=== PATIENT | male | born 1980 | race Caucasian/White ===

== ENCOUNTER 2016-09-19 09:02 | Day surgery (SDC) | payer OTHER ==
[2016-09-14 11:04] VITALS: BMI 31.4
[~2016-09-19 09:02] MED LIST: LACTATED RINGERS 1,000 ML IV SCH
[2016-09-19 09:32] VITALS: RESP 16; TEMP 97.8
[2016-09-19] MEDS ORDERED: LIDOCAINE 1% 20 ML VIAL (10MG/ML) FOR IV START INTRADERMA ONE (09:34)
[2016-09-19] MEDS ORDERED: MIDAZOLAM 2 MG/2 ML VIAL ONE (10:29)
[2016-09-19] MEDS ORDERED: TRIAMCINOLONE ACETONIDE 40 MG/ML 1 ML VIAL ONE (10:29)
[2016-09-19] MEDS ORDERED: fentaNYL (PF) 50 MCG/ML 2 ML AMP ONE (10:29)
--- NOTE | 2016-09-19 10:55 | P.PCN ---
Date of Procedure: 09/19/16 Procedure(s) Performed: PREOPERATIVE DIAGNOSIS: 1- Lumbar herniated Disc Diseases 2-Lumbar Radiculopathy. POSTOPERATIVE DIAGNOSIS: Same as preop diagnosis. PROCEDURE 1. Lumbar epidural steroid injection under fluoroscopic guidance at the L5-S1 level. ANESTHESIA: Local with 1% lidocaine 3 ml and IV sedation with Versed 2 mg , and fentanyle 50 Mcg EBL: Minimal PROCEDURE INDICATION: The patient with low back pain and radiculitis symptoms unresponsive to conservative treatment. Fluoroscopy was used to optimize visualization of the needle placement and to maximize safety. PROCEDURE DESCRIPTION / TECHNIQUE: The patient was seen and identified in the preoperative area. Risks, benefits , complications including but not limited to infections ,bleeding ,allergic reaction to the medications ,nerve damage and not complete pain releife , and alternatives were discussed with the patient. The patient agreed to proceed with the procedure and signed the consent. IV was started, and vital signs were stable. Patient was taken to the OR and time out was completed. The patient was placed in the prone position on procedure table and a pillow was placed under the abdomen to reduce lumbar lordosis. The lumbosacral area was prepped and draped in the usual sterile fashion.ere closely monitored during the procedure. Conscious sedation was used during the procedure to decrease patients anxiety. Vital signs was monitered during the entire procedure. Using anterior-posterior fluoroscopy, the L5-S1 interlaminar space was identified and the skin over this site was marked and then infiltrated with 1% lidocaine subcutaneously. Subsequently, a 20-gauge Tuohy epidural needle was inserted and advanced toward the epidural space using the ``Loss of resistance technique and guided by AP and lateral fluoroscopy. The correct needle position in the epidural space was verified with fluoroscopy, after negative aspiration for blood and CSF and in the absence of paresthesias. Again after negative aspiration, a 6 ml mixture containing 80 mg of Kenalog and 2 ml of preservative free Normal Saline, and 2 ml of preservative free lidocaine 1% solution was injected , Omnipaque was not injected because patient has ALLERGY to IVP dye. Needle was withdrawn intact, skin was cleansed, and bandages were applied. COMPLICATIONS: None DISPOSITION / PLANS: The patient was placed in a supine position and transferred to the recovery area in a stable condition for observation. There was no evidence of lower extremity motor or sensory deficit after the procedure. Patient was discharged from the recovery room after meeting discharge criteria. Home discharge instructions were given to the patient by the staff. The patient was reexamined prior to discharge. The patient will schedule a follow up in the clinic in 2-4 weeks.
[2016-09-19] MEDS ORDERED: IV FLUID CONTINUATION 1,000 ML IV ONE (10:58)
--- NOTE | 2016-09-19 11:05 | FL ---
EXAMINATION TYPE: FL guided pain mgmt statistic DATE OF EXAM: 09/19/2016 10:55 AM HISTORY: Flouroscopy time 5 seconds of fluoroscopy provided. IMPRESSION: 1. Fluoroscopy time.
[2016-09-19 11:23] VITALS: BP 117/60; PULSE 78
== END 2016-09-19 11:32 | disposition home or self-care (01) ==
LOC: ORPAIN 09:02
PROVIDERS: ATTEND Specialist
DX: M51.16 Intervertebral disc disorders with radiculopathy, lumbar region (principal); J45.909 Unspecified asthma, uncomplicated; F41.9 Anxiety disorder, unspecified; Z91.041 Radiographic dye allergy status; Z88.5 Allergy status to narcotic agent
CPT/HCPCS: 62323; J2250; J3301; J3010

== ENCOUNTER 2016-12-22 18:05 | Observation (INO) | payer OTHER ==
[2016-12-22] MEDS ORDERED: SODIUM CHLORIDE 0.9% 1,000 ML IV STA (20:22)
--- NOTE | 2016-12-22 20:36 | ED ---
General Adult HPI <Hugh West - Last Filed: 12/22/16 22:59> <RodrigueOz - Last Filed: 12/22/16 23:49> - General Source: patient, RN notes reviewed Mode of arrival: ambulatory Limitations: no limitations <Jacki Phillips - Last Filed: 12/23/16 03:40> - General Chief complaint: Weakness Stated complaint: weakness,poss diabete Time Seen by Provider: 12/22/16 20:11 - History of Present Illness Initial comments: Patient is a 36-year-old male presents emergency room for evaluation of generalized weakness and chest pain. Patient states symptoms began yesterday. Patient states symptoms are escalating today. Patient states he has Left-sided chest pain that radiates down his left arm that has been going on and off throughout the day today. Patient states the pain will last about 1-2 minutes at a time. Patient states he feels weak all over. Patient denies shortness of breath. Patient states is currently having 4 out of 10 chest pain. Patient denies any cardiac history. Patient states he has family history of MIs. 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 Patient denies ever taking blood thinners. Patient also states she has a history of colitis. Patient states he's been having blood in his stools which is normal for him. Patient denies any increasing abdominal pain. Patient denies history of anemia. Patient denies headache or dizziness. Patient states he feels very rundown. Patient denies fevers or chills. (Jacki Phillips) - Related Data Home Medications Medication Instructions Recorded Confirmed Albuterol Inhaler [Ventolin Hfa 1 puff INHALATION RT-Q4H PRN 12/22/16 12/22/16 Inhaler] Ibuprofen [Motrin] 600 mg PO BID 12/22/16 12/22/16 Icy Hot Rub 1 applic TOPICAL DAILY PRN 12/22/16 12/22/16 Loratadine [Claritin] 10 mg PO DAILY 12/22/16 12/22/16 Allergies Allergy/AdvReac Type Severity Reaction Status Date / Time cashew nut Allergy Swelling Verified 12/22/16 20:18 Iodinated Contrast Media - Allergy Nausea & Verified 12/22/16 20:18 Oral and Vomiting & [Iodinated Contrast Media - Diarrhea IV Dye] Review of Systems ROS Other: All systems not noted in ROS Statement are negative. <BrettHugh - Last Filed: 12/22/16 22:59> ROS Other: All systems not noted in ROS Statement are negative. <Oz Husain - Last Filed: 12/22/16 23:49> ROS Other: All systems not noted in ROS Statement are negative. <Jacki Phillips - Last Filed: 12/23/16 03:40> ROS Statement: Those systems with pertinent positive or pertinent negative responses have been documented in the HPI. Past Medical History Past Medical History: Asthma, CVA/TIA, Diabetes Mellitus, Musculoskeletal Disorder Additional Past Medical History / Comment(s): COLITIS, pain lower back and feet History of Any Multi-Drug Resistant Organisms: None Reported Past Surgical History: Appendectomy Additional Past Surgical History / Comment(s): Cassius ing. hernia repair x2 each side. BACK INJECTIONS. Past Anesthesia/Blood Transfusion Reactions: Previous Problems w/ Anesthesia Additional Past Anesthesia/Blood Transfusion Reaction / Comment(s): slow to wake up Past Psychological History: No Psychological Hx Reported Smoking Status: Never smoker Past Alcohol Use History: None Reported Past Drug Use History: None Reported - Past Family History Father Family Medical History: Diabetes Mellitus, Hypertension Additional Family Medical History / Comment(s): CA Mother Family Medical History: Diabetes Mellitus, Hypertension Additional Family Medical History / Comment(s): CA. <Jacki Phillips - Last Filed: 12/23/16 03:40> General Exam <Hugh West - Last Filed: 12/22/16 22:59> <Oz Husain - Last Filed: 12/22/16 23:49> Limitations: no limitations General appearance: alert, in no apparent distress Head exam: Present: atraumatic, normocephalic, normal inspection Eye exam: Present: normal appearance ENT exam: Present: normal exam Respiratory exam: Present: normal lung sounds bilaterally. Absent: respiratory distress Cardiovascular Exam: Present: regular rate, normal rhythm, normal heart sounds GI/Abdominal exam: Present: soft, normal bowel sounds. Absent: distended, tenderness, guarding, rebound, rigid Extremities exam: Present: normal inspection Back exam: Present: normal inspection Neurological exam: Present: alert, oriented X3, CN II-XII intact, normal gait Psychiatric exam: Present: normal affect, normal mood Skin exam: Present: warm, dry, intact, normal color. Absent: rash <Jacki Phillips - Last Filed: 12/23/16 03:40> - General Exam Comments Initial Comments: Sitting in exam room, no acute distress. (Jacki Phillips) Course <Hugh West - Last Filed: 12/22/16 22:59> <Oz Husain - Last Filed: 12/22/16 23:49> <Jacki Phillips - Last Filed: 12/23/16 03:40> Vital Signs 12/22/16 12/22/16 12/22/16 19:20 20:22 21:25 Temperature 97.7 F 97.3 F L 97.3 F L Pulse Rate 73 80 75 Pulse Rate [ Right] Respiratory 18 16 16 Rate Blood Pressure 139/91 149/98 134/70 Blood Pressure [Right Arm] O2 Sat by Pulse 97 98 96 Oximetry 12/23/16 12/23/16 00:10 01:00 Temperature 97.7 F Pulse Rate 63 Pulse Rate [ 69 Right] Respiratory 18 16 Rate Blood Pressure 131/80 Blood Pressure 154/88 [Right Arm] O2 Sat by Pulse 98 96 Oximetry - Reevaluation(s) Reevaluation #1: 12/22/16 23:49 I was asked to enter a placement order in this patient's chart. (Oz Husain) EKG Findings - EKG Comments: EKG Findings:: EKG was done and reviewed at 1937 showing normal sinus rhythm with sinus arrhythmia right incomplete right bundle branch block. No acute ST elevation, no ischemic changes appreciated. Rate 60 per was 138 QRS 94 QT [address] West <Hugh West - Last Filed: 12/22/16 22:59> Medical Decision Making - Lab Data Result diagrams: 12/22/16 20:49 12/22/16 20:49 <Hugh West - Last Filed: 12/22/16 22:59> - Lab Data Result diagrams: 12/22/16 20:49 12/22/16 20:49 <Oz Husain - Last Filed: 12/22/16 23:49> - Lab Data Result diagrams: 12/22/16 20:49 12/22/16 20:49 <Jacki Phillips - Last Filed: 12/23/16 03:40> - Medical Decision Making Medical decision-making. Recently the patient reports for the past 2 or 3 days been having anginal-type symptoms left side of the chest radiates down the left arm last 2 or 3 minutes. The patient does heavy labor. No sensation of nausea vomiting. Today's EKG done in emergency room showed normal sinus rhythm with sinus arrhythmia and incomplete right bundle branch block. Risk factors include grandfather sudden- heart attack age 40. His father has had multiple strokes and 2 heart attacks. The patient himself is a TIA several years ago. The patient's nonsmoker. I discussed with patient and family at bedside angina-type symptoms possibility of unstable angina. The patient's attending will be notified patient be admitted for further evaluation including cardiology consultation. The patient is pain free at this time. Enzymes all within normal limits. Dr. West (Hugh West) - Lab Data Lab Results 12/22/16 12/22/16 12/22/16 Range/Units 20:49 20:49 20:49 WBC 11.5 H (3.8-10.6) k/uL RBC 5.11 (4.30-5.90) m/uL Hgb 15.8 (13.0-17.5) gm/dL Hct 45.9 (39.0-53.0) % MCV 89.7 (80.0-100.0) fL MCH 30.8 (25.0-35.0) pg MCHC 34.4 (31.0-37.0) g/dL RDW 12.3 (11.5-15.5) % Plt Count 347 (150-450) k/uL Neutrophils % 64 % Lymphocytes % 21 % Monocytes % 6 % Eosinophils % 7 % Basophils % 1 % Neutrophils # 7.3 (1.3-7.7) k/uL Lymphocytes # 2.4 (1.0-4.8) k/uL Monocytes # 0.7 (0-1.0) k/uL Eosinophils # 0.8 H (0-0.7) k/uL Basophils # 0.1 (0-0.2) k/uL PT (9.0-12.0) sec INR (<1.1) APTT (22.0-30.0) sec Sodium 141 (137-145) mmol/L Potassium 4.1 (3.5-5.1) mmol/L Chloride 103 (98-107) mmol/L Carbon Dioxide 27 (22-30) mmol/L Anion Gap 11 mmol/L BUN 15 (9-20) mg/dL Creatinine 0.92 (0.66-1.25) mg/dL Est GFR (MDRD) Af Amer >60 (>60 ml/min/1.73 sqM) Est GFR (MDRD) Non-Af >60 (>60 ml/min/1.73 sqM) Glucose 111 H (74-99) mg/dL POC Glucose (mg/dL) (75-99) mg/dL POC Glu Supervisor [employer] ID Calcium 9.9 (8.4-10.2) mg/dL Magnesium 2.1 (1.6-2.3) mg/dL Total Bilirubin 0.7 (0.2-1.3) mg/dL AST 38 (17-59) U/L ALT 54 (21-72) U/L Alkaline Phosphatase 100 (38-126) U/L Total Creatine Kinase 195 H (55-170) U/L CK-MB (CK-2) 1.0 (0.0-2.4) ng/mL CK-MB (CK-2) Rel Index 0.5 Troponin I <0.012 (0.000-0.034) ng/mL Total Protein 7.8 (6.3-8.2) g/dL Albumin 4.7 (3.5-5.0) g/dL Amylase 76 (30-110) U/L Lipase 253 (23-300) U/L Urine Color Urine Appearance (Clear) Urine pH (5.0-8.0) Ur Specific [place] (1.001-1.035) Urine Protein (Negative) Urine Glucose (UA) (Negative) Urine Ketones (Negative) Urine Blood (Negative) Urine Nitrite (Negative) Urine Bilirubin (Negative) Urine Urobilinogen (<2.0) mg/dL Ur Leukocyte Esterase (Negative) 12/22/16 12/22/16 12/22/16 Range/Units 20:49 20:49 21:02 WBC (3.8-10.6) k/uL RBC (4.30-5.90) m/uL Hgb (13.0-17.5) gm/dL Hct (39.0-53.0) % MCV (80.0-100.0) fL MCH (25.0-35.0) pg MCHC (31.0-37.0) g/dL RDW (11.5-15.5) % Plt Count (150-450) k/uL Neutrophils % % Lymphocytes % % Monocytes % % Eosinophils % % Basophils % % Neutrophils # (1.3-7.7) k/uL Lymphocytes # (1.0-4.8) k/uL Monocytes # (0-1.0) k/uL Eosinophils # (0-0.7) k/uL Basophils # (0-0.2) k/uL PT 9.7 (9.0-12.0) sec INR 0.9 (<1.1) APTT 23.6 (22.0-30.0) sec Sodium (137-145) mmol/L Potassium (3.5-5.1) mmol/L Chloride (98-107) mmol/L Carbon Dioxide (22-30) mmol/L Anion Gap mmol/L BUN (9-20) mg/dL Creatinine (0.66-1.25) mg/dL Est GFR (MDRD) Af Amer (>60 ml/min/1.73 sqM) Est GFR (MDRD) Non-Af (>60 ml/min/1.73 sqM) Glucose (74-99) mg/dL POC Glucose (mg/dL) 112 H (75-99) mg/dL POC Glu Supervisor [employer] ID Anger, [place] Calcium (8.4-10.2) mg/dL Magnesium (1.6-2.3) mg/dL Total Bilirubin (0.2-1.3) mg/dL AST (17-59) U/L ALT (21-72) U/L Alkaline Phosphatase (38-126) U/L Total Creatine Kinase (55-170) U/L CK-MB (CK-2) (0.0-2.4) ng/mL CK-MB (CK-2) Rel Index Troponin I (0.000-0.034) ng/mL Total Protein (6.3-8.2) g/dL Albumin (3.5-5.0) g/dL Amylase (30-110) U/L Lipase (23-300) U/L Urine Color Yellow Urine Appearance Clear (Clear) Urine pH 6.0 (5.0-8.0) Ur Specific [place] 1.012 (1.001-1.035) Urine Protein Negative (Negative) Urine Glucose (UA) Negative (Negative) Urine Ketones Negative (Negative) Urine Blood Negative (Negative) Urine Nitrite Negative (Negative) Urine Bilirubin Negative (Negative) Urine Urobilinogen <2.0 (<2.0) mg/dL Ur Leukocyte Esterase Negative (Negative) Disposition <Hugh West - Last Filed: 12/22/16 22:59> <Oz Husain - Last Filed: 12/22/16 23:49> Decision Date: 12/22/16 <Jacki Phillips - Last Filed: 12/23/16 03:40> Clinical Impression: Unstable angina Disposition: ADMITTED IP TO THIS HOSP Condition: Stable
[2016-12-22 21:01] LABS: Appearance,Urine Clear (Clear); Bilirubin,Urine Negative (Negative); Glucose,Urine (UA) Negative (Negative); Ketones,Urine Negative (Negative); Leukocyte Esterase,Urine Negative (Negative); Nitrite,Urine Negative (Negative); Protein,Urine Negative (Negative); Specific Gravity,Urine 1.012 (1.001-1.035); UA Billing (MACRO vs. MICRO) CHEM; Urobilinogen,Urine <2.0 mg/dL (<2.0)
[2016-12-22 21:03] LABS: Glucose,Whole Blood 112 mg/dL (75-99)
[2016-12-22] MEDS ORDERED: ONDANSETRON 4 MG/2 ML VIAL IVP STA (21:11)
[2016-12-22 21:15] LABS: Basophils # (A) 0.1 k/uL (0-0.2); Basophils % (A) 1 %; CH 31.4; CHCM 35.2; Eosinophils # (A) 0.8 k/uL (0-0.7); Eosinophils % (A) 7 %; HCT 45.9 % (39.0-53.0); HDW 2.58; HGB 15.8 gm/dL (13.0-17.5); Luc # (Auto) 0.23; Luc % (Auto) 2; Lymphocytes # (A) 2.4 k/uL (1.0-4.8); Lymphocytes % (A) 21 %; MCH 30.8 pg (25.0-35.0); MCHC 34.4 g/dL (31.0-37.0); MCV 89.7 fL (80.0-100.0); Mean Platelet Volume 6.3; Monocytes # (A) 0.7 k/uL (0-1.0); Monocytes % (A) 6 %; Neutrophils # (A) 7.3 k/uL (1.3-7.7); Neutrophils % (A) 64 %; RBC 5.11 m/uL (4.30-5.90); RDW 12.3 % (11.5-15.5); WBC 11.5 k/uL (3.8-10.6); WBC (Perox) 11.42
[2016-12-22 21:16] LABS: ALT 54 U/L (21-72); AST 38 U/L (17-59); Alkaline Phosphatase 100 U/L (38-126); Amylase 76 U/L (30-110); Anion Gap 11 mmol/L; Blood Urea Nitrogen 15 mg/dL (9-20); Calcium 9.9 mg/dL (8.4-10.2); Carbon Dioxide 27 mmol/L (22-30); Chloride 103 mmol/L (98-107); Creatine Kinase 195 U/L (55-170); Glucose 111 mg/dL (74-99); Magnesium 2.1 mg/dL (1.6-2.3); Non-African American GFR(MDRD) >60 (>60 ml/min/1.73 sqM); Potassium 4.1 mmol/L (3.5-5.1); Sodium 141 mmol/L (137-145); Total Bilirubin 0.7 mg/dL (0.2-1.3); Total Protein 7.8 g/dL (6.3-8.2)
[2016-12-22 21:20] LABS: INR 0.9 (<1.1); Partial Thromboplastin Time 23.6 sec (22.0-30.0); Prothrombin Time 9.7 sec (9.0-12.0)
[2016-12-22 21:28] LABS: Troponin I <0.012 ng/mL (0.000-0.034)
[2016-12-22] MEDS ORDERED: HEPARIN SODIUM,PORCINE 5,000 UNIT/ML 1 ML VIAL IV ONE (23:01)
[2016-12-22] MEDS ORDERED: NITROGLYCERIN SL TABS 0.4 MG TAB SUBLINGUAL PRN (23:12)
[2016-12-22] MEDS ORDERED: ACETAMINOPHEN TAB 325 MG TAB PO PRN (23:12)
[2016-12-22] MEDS ORDERED: MORPHINE SULFATE 4 MG/ML SYRINGE IV PRN (23:12)
[2016-12-22] MEDS ORDERED: HEPARIN SODIUM,PORCINE/D5W PMX 25,000 UNIT in DEXTROSE/WATER 1 500ML.BAG IV SCH (23:15)
[2016-12-22] MEDS ORDERED: ALBUTEROL NEBULIZED 2.5 MG/3 ML INHALATION PRN (23:21)
--- NOTE | 2016-12-22 23:36 | XR ---
EXAM: XR Abdomen Complete With XR Chest CLINICAL HISTORY: Reason: Pain TECHNIQUE: Frontal view of the chest, frontal view of the abdomen/pelvis and upright view of the abdomen. COMPARISON: No relevant prior studies available. FINDINGS: Lungs: Unremarkable. No consolidation. Pleural space: Unremarkable. No pneumothorax. Heart: Unremarkable. No cardiomegaly. Mediastinum: Unremarkable. Intraperitoneal space: No free air. Gastrointestinal tract: Moderate fecal load. No obstruction. Bones/joints: Unremarkable. IMPRESSION: Moderate fecal load.
[2016-12-23] MEDS ORDERED: ASPIRIN 325 MG TAB PO STA (00:12)
[2016-12-23 02:51] LABS: Creatine Kinase 158 U/L (55-170)
[2016-12-23 03:04] LABS: Creatine Kinase MB 0.8 ng/mL (0.0-2.4); Troponin I <0.012 ng/mL (0.000-0.034)
[2016-12-23 06:57] LABS: Glucose,Whole Blood 104 mg/dL (75-99)
[2016-12-23 07:59] LABS: Cholesterol 137 mg/dL (<200); HDL Cholesterol 31 mg/dL (40-60); Triglycerides 206 mg/dL (<150)
[2016-12-23 08:07] LABS: Creatine Kinase 140 U/L (55-170)
[2016-12-23 08:18] LABS: Creatine Kinase MB 0.8 ng/mL (0.0-2.4); Troponin I <0.012 ng/mL (0.000-0.034)
--- NOTE | 2016-12-23 08:25 | P.HPIM ---
History of Present Illness H&P Date: 12/23/16 Chief Complaint: Chest pain 36-year-old male whose primary care provider is Dr. Wells presented on the day of admission to the emergency room with a chief complaint of developing midsternal chest discomfort radiating down the left upper arm with a sensation of nausea no emesis no diaphoresis. No shortness of breath Patient reports the symptoms have been ongoing throughout the day. Patient stated occurred at work when he was actively lifting he stopped the activity the discomfort went away. Patient states he had not had prior episodes. Patient states is normally a active individual this is not a new job that he's been at this job for 5 years working as a [employer].. Patient stated that he did become concerned and did present to the emergency room for the above-mentioned symptoms. Patient states he does have a family history of coronary artery disease His great-grandfather at the age of 40 from a heart attack his father reportedly has had several TIAs with prior strokes. Patient states there's been no significant change in past medical history. He is a nonsmoker no alcohol. Patient does state he has a history of colitis has chronic right red bloody stools. States his last colonoscopy was [address] López is on no medication for colitis. Currently resting in bed states at rest there is no chest pain troponin 2 negative. 12-lead EKG sinus rhythm no acute ST elevation incomplete right bundle branch block Review of Systems Essentially unremarkable except as mentioned in the present illness Past Medical History Past Medical History: Asthma, CVA/TIA, Diabetes Mellitus, Musculoskeletal Disorder Additional Past Medical History / Comment(s): COLITIS, pain lower back and feet History of Any Multi-Drug Resistant Organisms: None Reported Past Surgical History: Appendectomy Additional Past Surgical History / Comment(s): Cassius ing. hernia repair x2 each side. BACK INJECTIONS. Past Anesthesia/Blood Transfusion Reactions: Previous Problems w/ Anesthesia Additional Past Anesthesia/Blood Transfusion Reaction / Comment(s): slow to wake up Past Psychological History: No Psychological Hx Reported Smoking Status: Never smoker Past Alcohol Use History: None Reported Past Drug Use History: None Reported - Past Family History Father Family Medical History: Diabetes Mellitus, Hypertension Additional Family Medical History / Comment(s): CA Mother Family Medical History: Diabetes Mellitus, Hypertension Additional Family Medical History / Comment(s): CA. Medications and Allergies Home Medications Medication Instructions Recorded Confirmed Type Albuterol Inhaler [Ventolin Hfa 1 puff INHALATION RT-Q4H PRN 12/22/16 12/22/16 History Inhaler] Ibuprofen [Motrin] 600 mg PO BID 12/22/16 12/22/16 History Icy Hot Rub 1 applic TOPICAL DAILY PRN 12/22/16 12/22/16 History Loratadine [Claritin] 10 mg PO DAILY 12/22/16 12/22/16 History Allergies Allergy/AdvReac Type Severity Reaction Status Date / Time cashew nut Allergy Swelling Verified 12/22/16 20:18 Iodinated Contrast Media - Allergy Nausea & Verified 12/22/16 20:18 Oral and Vomiting & [Iodinated Contrast Media - Diarrhea IV Dye] Physical Exam Vitals: Vital Signs Temp Pulse Pulse Resp BP BP Pulse Ox 12/23/16 07:53 98.6 F 70 16 132/72 96 12/23/16 04:00 98.2 F 74 16 116/71 12/23/16 03:35 65 16 12/23/16 01:00 97.7 F 69 16 154/88 96 12/23/16 00:10 63 18 131/80 98 12/22/16 21:25 97.3 F L 75 16 134/70 96 12/22/16 20:22 97.3 F L 80 16 149/98 98 12/22/16 19:20 97.7 F 73 18 139/91 97 Intake and Output 12/22/16 12/23/16 12/23/16 22:59 06:59 14:59 Other: Voiding Method Toilet # Voids 3 Weight 86.183 kg GENERAL APPEARANCE: 36-year-old male patient is alert, oriented, in no acute distress. Currently states at rest no chest discomfort VITAL SIGNS: Reviewed HEENT: Head is normocephalic and atraumatic. Pupils are equal and reactive. The nares are patent. Oropharynx is clear without lesions. NECK: Supple without lymphadenopathy. Traches midline. HEART: S1, S2. Regular rate and rhythm. Sinus rhythm on the monitor no murmur noted LUNGS: No crackles or wheezes are heard. Adequate air movement bilaterally on room air ABDOMEN: Soft, nontender, nondistended with good bowel sounds. No peritoneal signs. No palpable organomegaly or masses. EXTREMITIES: Normal skin color and turgor. No cyanosis, rash, ulceration, clubbing or edema. Radial pedal pulses are 2/4 bilaterally. NEUROLOGICAL: No focal deficits. Strength and sensation are grossly intact. Results CBC & Chem 7: 12/22/16 20:49 12/22/16 20:49 Labs: Abnormal Lab Results - Last 24 Hours (Table) 12/22/16 12/22/16 12/22/16 Range/Units 20:49 20:49 20:49 WBC 11.5 H (3.8-10.6) k/uL Eosinophils # 0.8 H (0-0.7) k/uL APTT (22.0-30.0) sec Glucose 111 H (74-99) mg/dL POC Glucose (mg/dL) (75-99) mg/dL Total Creatine Kinase 195 H (55-170) U/L Triglycerides (<150) mg/dL HDL Cholesterol (40-60) mg/dL 12/22/16 12/23/16 12/23/16 Range/Units 21:02 06:55 07:23 WBC (3.8-10.6) k/uL Eosinophils # (0-0.7) k/uL APTT (22.0-30.0) sec Glucose (74-99) mg/dL POC Glucose (mg/dL) 112 H 104 H (75-99) mg/dL Total Creatine Kinase (55-170) U/L Triglycerides 206 H (<150) mg/dL HDL Cholesterol 31 L (40-60) mg/dL 12/23/16 Range/Units 07:23 WBC (3.8-10.6) k/uL Eosinophils # (0-0.7) k/uL APTT 30.9 H (22.0-30.0) sec Glucose (74-99) mg/dL POC Glucose (mg/dL) (75-99) mg/dL Total Creatine Kinase (55-170) U/L Triglycerides (<150) mg/dL HDL Cholesterol (40-60) mg/dL Thrombosis Risk Factor Assmnt - Choose All That Apply Each Factor Represents 1 point: Obesity (BMI >25) Thrombosis Risk Factor Assessment Total Risk Factor Score: 1 Thrombosis Risk Factor Assessment Level: Low Risk Assessment and Plan Plan: Impression Present on admission chest pain radiating down left arm unclear etiology History of colitis hemoglobin stable 15.8 Obesity BMI 31 Present on admission mild leukocytosis suspect reactive History of seasonal ALLERGIES A report of a family history of heart disease grandfather age 40 Dyslipidemia Plan Await cardiology input pending IV heparin as ordered Keep nothing by mouth total cardiology eval DVT and GI prophylaxis Further recommendations pending The above dictated assessment and findings were discussed with dr wells . Impression and the plan of care have been dictated as directed. Dilia Morgan nurse practitioner acting as a scribe for dr wells
[2016-12-23] MEDS: LORATADINE 10 MG TAB PO SCH (09:08)
[2016-12-23] MEDS: IBUPROFEN 600 MG TAB PO SCH ×2 (09:12→20:58)
--- NOTE | 2016-12-23 10:56 | P.PN ---
Progress Note - Text 36-year-old male patient with a strong family history of premature coronary artery disease and diabetes who presented with chest discomfort and numbness in his arm, normal cardiac enzymes are normal ECGs Plan Aspirin, atorvastatin and exercise stress echo with Definity contrast on Sunday
--- NOTE | 2016-12-23 11:11 | P.CRDCN ---
History of Present Illness Consult date: 12/23/16 Reason for Consult (text): unstable angina Chief complaint: chest pain, left arm heaviness, hand tingling History of present illness: This is a pleasant 36 year old gentleman with a known history of colitis for which she does have bloody stools, borderline diabetes which she was prescribed Glucophage but has been afraid to take this, previous TIA in 2011 and strong family history for coronary artery disease with a grandfather in his early 40s and his father has multiple stents starting in his early 40s and an uncle who had MIs and has since passed in his 40s. He is a nonsmoker, denies hypertension and hyperlipidemia and is a nondrinker. Is admitted to the emergency department after developing complaints of chest discomfort as well as left arm heaviness left hand tingling dizziness and nausea at work. His job is quite physical. After resting it went away however symptoms returned later in the evening. ECG on admission shows sinus rhythm without acute ST-T wave changes. Cardiac enzymes have been negative 3. Patient denies further complaints of chest discomfort, left arm heaviness, dizziness or nausea continues to complain of left hand tingling. Past Medical History Past Medical History: Asthma, CVA/TIA, Diabetes Mellitus, Musculoskeletal Disorder Additional Past Medical History / Comment(s): COLITIS, pain lower back and feet History of Any Multi-Drug Resistant Organisms: None Reported Past Surgical History: Appendectomy Additional Past Surgical History / Comment(s): Cassius ing. hernia repair x2 each side. BACK INJECTIONS. Past Anesthesia/Blood Transfusion Reactions: Previous Problems w/ Anesthesia Additional Past Anesthesia/Blood Transfusion Reaction / Comment(s): slow to wake up Past Psychological History: No Psychological Hx Reported Smoking Status: Never smoker Past Alcohol Use History: None Reported Past Drug Use History: None Reported - Past Family History Father Family Medical History: Diabetes Mellitus, Hypertension Additional Family Medical History / Comment(s): CA Mother Family Medical History: Diabetes Mellitus, Hypertension Additional Family Medical History / Comment(s): CA. Medications and Allergies Home Medications Medication Instructions Recorded Confirmed Type Albuterol Inhaler [Ventolin Hfa 1 puff INHALATION RT-Q4H PRN 12/22/16 12/22/16 History Inhaler] Ibuprofen [Motrin] 600 mg PO BID 12/22/16 12/22/16 History Icy Hot Rub 1 applic TOPICAL DAILY PRN 12/22/16 12/22/16 History Loratadine [Claritin] 10 mg PO DAILY 12/22/16 12/22/16 History Allergies Allergy/AdvReac Type Severity Reaction Status Date / Time cashew nut Allergy Swelling Verified 12/22/16 20:18 Iodinated Contrast Media - Allergy Nausea & Verified 12/22/16 20:18 Oral and Vomiting & [Iodinated Contrast Media - Diarrhea IV Dye] Physical Exam Vitals: Vital Signs Temp Pulse Pulse Resp BP BP Pulse Ox 12/23/16 07:53 98.6 F 70 16 132/72 96 12/23/16 04:00 98.2 F 74 16 116/71 12/23/16 03:35 65 16 12/23/16 01:00 97.7 F 69 16 154/88 96 12/23/16 00:10 63 18 131/80 98 12/22/16 21:25 97.3 F L 75 16 134/70 96 12/22/16 20:22 97.3 F L 80 16 149/98 98 12/22/16 19:20 97.7 F 73 18 139/91 97 Intake and Output 12/22/16 12/23/16 12/23/16 22:59 06:59 14:59 Other: Voiding Method Toilet Toilet # Voids 3 Weight 86.183 kg PHYSICAL EXAMINATION: HEENT: Head is atraumatic, normocephalic. Pupils equal, round. Neck is supple. There is no elevated jugular venous pressure. Poor dentition. HEART EXAMINATION: Heart sounds regular, S1 and S2 normal. No murmur or gallop heard. CHEST EXAMINATION: Lungs are clear to auscultation and precussion. No chest wall tenderness is noted on palpation or with deep breathing. ABDOMEN: Soft, nontender. Bowel sounds are heard. No organomegaly noted. EXTREMITIES: 2+ peripheral pulses with no evidence of peripheral edema and no calf tenderness noted. NEUROLOGIC patient is awake, alert and oriented x3. . Results 12/22/16 20:49 12/22/16 20:49 Cardiac Enzymes 12/22/16 12/22/16 12/23/16 Range/Units 20:49 20:49 02:12 AST 38 (17-59) U/L CK-MB (CK-2) 1.0 0.8 (0.0-2.4) ng/mL Troponin I <0.012 <0.012 (0.000-0.034) ng/mL 12/23/16 Range/Units 07:23 AST (17-59) U/L CK-MB (CK-2) 0.8 (0.0-2.4) ng/mL Troponin I <0.012 (0.000-0.034) ng/mL Coagulation 12/22/16 12/23/16 Range/Units 20:49 07:23 PT 9.7 (9.0-12.0) sec APTT 23.6 30.9 H (22.0-30.0) sec Lipids 12/23/16 Range/Units 07:23 Triglycerides 206 H (<150) mg/dL Cholesterol 137 (<200) mg/dL HDL Cholesterol 31 L (40-60) mg/dL CBC 12/22/16 Range/Units 20:49 WBC 11.5 H (3.8-10.6) k/uL RBC 5.11 (4.30-5.90) m/uL Hgb 15.8 (13.0-17.5) gm/dL Hct 45.9 (39.0-53.0) % Plt Count 347 (150-450) k/uL Comprehensive Metabolic Panel 12/22/16 Range/Units 20:49 Sodium 141 (137-145) mmol/L Potassium 4.1 (3.5-5.1) mmol/L Chloride 103 (98-107) mmol/L Carbon Dioxide 27 (22-30) mmol/L BUN 15 (9-20) mg/dL Creatinine 0.92 (0.66-1.25) mg/dL Glucose 111 H (74-99) mg/dL Calcium 9.9 (8.4-10.2) mg/dL AST 38 (17-59) U/L ALT 54 (21-72) U/L Alkaline Phosphatase 100 (38-126) U/L Total Protein 7.8 (6.3-8.2) g/dL Albumin 4.7 (3.5-5.0) g/dL Current Medications Generic Name Dose Route Start Last Admin Trade Name Freq PRN Reason Stop Dose Admin Acetaminophen 650 mg 12/22/16 23:12 Tylenol Tab PO Q4HR PRN Pain Albuterol Sulfate 2.5 mg 12/22/16 23:21 Ventolin Nebulized INHALATION RT-Q4H PRN Shortness Of Breath Aspirin 325 mg 12/24/16 09:00 Aspirin PO DAILY [facility] Atorvastatin Calcium 20 mg 12/23/16 10:30 Lipitor PO DAILY [facility] Ibuprofen 600 mg 12/23/16 09:00 12/23/16 09:12 Motrin PO Not Given BID [facility] Loratadine 10 mg 12/23/16 09:00 12/23/16 09:08 Claritin PO 10 mg DAILY [facility] Administration Morphine Sulfate 4 mg 12/22/16 23:12 Morphine Sulfate (Inj) IV Q5M PRN Chest Pain Nitroglycerin 0.4 mg 12/22/16 23:12 Nitrostat SUBLINGUAL Q5M PRN Chest Pain Intake and Output 12/22/16 12/23/16 12/23/16 22:59 06:59 14:59 Other: Voiding Method Toilet Toilet # Voids 3 Weight 86.183 kg 12/22/16 20:49 12/22/16 20:49 Assessment and Plan Plan: Assessment and plan #1 chest discomfort with left arm heaviness and tingling accompanied by dizziness and nausea #2 colitis with bloody stools, hemoglobin is stable #3 diabetes mellitus type 2, noncompliant with medical therapy #4 family history of premature CAD Discontinue IV heparin. Add baby aspirin and atorvastatin. 2-D echo with Doppler. Exercise stress echo with definity on Sunday. PILLOWCASE TURNER note has been reviewed, I agree with a documented findings and plan of care. Patient was seen and examined.
[2016-12-23 12:05] LABS: Glucose,Whole Blood 98 mg/dL (75-99)
[2016-12-23] MEDS: ATORVASTATIN 20 MG TAB PO SCH (12:22)
[2016-12-23 17:29] LABS: Glucose,Whole Blood 106 mg/dL (75-99)
--- NOTE | 2016-12-23 18:30 | ECHOF ---
Referral Reason:cp MEASUREMENTS -------- HEIGHT: 165.1 cm WEIGHT: 86.2 kg BP: IVSd: 1.1 cm (0.6 - 1.1) LVIDd: 4.1 cm (3.9 - 5.3) LVPWd: 1.3 cm (0.6 - 1.1) IVSs: 1.5 cm LVIDs: 2.9 cm LVPWs: 1.8 cm Ao Diam: 3.5 cm (2.0 - 3.7) AV Cusp: 2.4 cm (1.5 - 2.6) LA Diam: 3.5 cm (2.7 - 3.8) MV EXCURSION: 10.412 mm (> 18.000) MV EF SLOPE: 90 mm/s (70 - 150) EPSS: 1.3 cm MV E Samuel: 0.96 m/s MV DecT: 211 ms MV A Samuel: 0.72 m/s MV E/A Ratio: 1.34 RAP: 5.00 mmHg RVSP: 11.86 mmHg FINDINGS -------- Sinus rhythm. This was a technically good study. There is borderline concentric left ventricular hypertrophy. Overall left ventricular systolic function is normal with, an EF between 55 - 60 %. The right ventricle is normal in size and function. The left atrium is normal in size. The right atrium is normal in size. The aortic valve is trileaflet, and appears structurally normal. No aortic stenosis or regurgitation. The mitral valve leaflets are mildly thickened. There is trace mitral regurgitation. Trace tricuspid regurgitation present. The right ventricular systolic pressure, as measured by Doppler, is 11.86mmHg. Pulmonic valve appears structurally normal. The aortic root size is normal. The pericardium is normal. CONCLUSIONS -------- 1. Sinus rhythm. 2. There is trace mitral regurgitation. 3. Trace tricuspid regurgitation present. 4. The right ventricular systolic pressure, as measured by Doppler, is 11.86mmHg. 5. Pulmonic valve appears structurally normal. 6. The aortic root size is normal. 7. The pericardium is normal. 8. This was a technically good study. 9. There is borderline concentric left ventricular hypertrophy. 10. Overall left ventricular systolic function is normal with, an EF between 55 - 60 %. 11. The right ventricle is normal in size and function. 12. The left atrium is normal in size. 13. The right atrium is normal in size. 14. The aortic valve is trileaflet, and appears structurally normal. No aortic stenosis or regurgitation. 15. The mitral valve leaflets are mildly thickened. MEDICAL ANTHROPOLOGY DIRECTOR: Krista Dempsey RDCS
[2016-12-24 08:10] VITALS: RESP 16
--- NOTE | 2016-12-24 08:15 | P.PN ---
Subjective Principal diagnosis: 36 year old male being seen on rounds this morning. Sitting up in bed. Patient has been seen by cardiology service. Patient is being scheduled tomorrow for a stress exercise echo with Definity contrast on the as part of a workup for chest pain. Patient's initial presentation was to the emergency room with chest pain radiating down the left arm. Patient does have a family history of premature coronary artery disease and diabetes. Brigantine enzymes have been negative. Patient currently is stating he has not had any chest pain at rest or with activity this morning Objective - Vital Signs Vital signs: Vital Signs Temp 97.8 F 12/24/16 08:00 Pulse 71 12/24/16 08:00 Resp 16 12/24/16 08:00 BP 115/87 12/24/16 08:00 Pulse Ox 93 L 12/24/16 08:00 Intake & Output 12/23/16 12/24/16 12/24/16 18:59 06:59 18:59 Weight 86.183 kg Other: Voiding Method Toilet Toilet # Voids 1 2 - Exam Physical exam 36-year-old male sitting up in bed pleasant cooperative oriented 3 Lungs essentially clear adequate air movement on room air sats currently 94% no cough noted Heart S1-S2 audible and regular monitor sinus Abdomen soft nontender reports no nausea vomiting Extremities no edema noted - Labs CBC & Chem 7: 12/22/16 20:49 12/22/16 20:49 Labs: Abnormal Lab Results - Last 24 Hours (Table) 12/23/16 12/23/16 Range/Units 07:23 17:22 POC Glucose (mg/dL) 106 H (75-99) mg/dL Triglycerides 206 H (<150) mg/dL HDL Cholesterol 31 L (40-60) mg/dL Assessment and Plan Plan: Impression Present on admission chest pain radiating down left arm unclear etiology History of colitis hemoglobin stable 15.8 Obesity BMI 31 Present on admission mild leukocytosis suspect reactive History of seasonal ALLERGIES A report of a family history of heart disease grandfather age 40 from heart attack Dyslipidemia Strong family history of premature coronary artery disease Plan Scheduled on the stress exercise echo with Definity contrast await results Continue aspirin and Lipitor as ordered DVT and GI prophylaxis Further recommendations pending The above dictated assessment and findings were discussed with dr fried . Impression and the plan of care have been dictated as directed. Dilia Morgan nurse practitioner acting as a scribe for dr fried
[2016-12-24] MEDS: LORATADINE 10 MG TAB PO SCH (08:33)
[2016-12-24] MEDS: ATORVASTATIN 20 MG TAB PO SCH (08:33)
[2016-12-24] MEDS: ASPIRIN 325 MG TAB PO SCH (08:33)
[2016-12-24] MEDS: IBUPROFEN 600 MG TAB PO SCH ×2 (08:33→21:00)
--- NOTE | 2016-12-24 09:03 | PN ---
The patient is doing well. He has not had any further chest pain. His blood pressure 115/87 mmHg, afebrile 97.8 degrees Fahrenheit, pulse rate is in the 70s. Head and neck examination is normal. Heart sounds are normal. Lungs are clear to auscultation. Extremities are warm. No edema. IMPRESSIONS: 1. Patient admitted with atypical chest discomfort with normal cardiac enzymes. 2. Strong family history of coronary artery disease. SUGGEST: Proceed with the stress test tomorrow. If this is normal, he may go home and then follow up as an outpatient.
[2016-12-25] MEDS: ASPIRIN 325 MG TAB PO SCH (10:08)
[2016-12-25] MEDS: LORATADINE 10 MG TAB PO SCH (10:08)
[2016-12-25] MEDS: ATORVASTATIN 20 MG TAB PO SCH (10:08)
[2016-12-25] MEDS: IBUPROFEN 600 MG TAB PO SCH (10:10)
--- NOTE | 2016-12-25 11:07 | ECHOS ---
DATE OF SERVICE: 12/25/2016 AGE: 36Y SEX: M HT: 65" WT: 190 lbs. Protocol Bethel: X Others: Stress Echo Stage: 5 Dur. of Exercise: 12:30 *Heart Rate Blood Pressure *Rest: 72 Rest: 98/57 * *Max. Achieved: 157 Maximum BP: 187/98 85% PMHR: 156 100% PMHR: 184 *METS: 12.7 INDICATIONS: Chest pain. MEDICATIONS: Claritin, Motrin. Baseline rhythm is sinus mechanism, rate of 72, normal axis and intervals. Normal electrocardiogram. Baseline blood pressure 98/57 mmHg. Patient exercised Bethel protocol for 12 minutes 30 seconds reaching peak rate of 157 beats per minute, which is equal to 85% maximum predicted heart rate; peak blood pressure 187/98 mmHg. Test was terminated due to fatigue. There was no chest pain. Electrocardiograph monitoring revealed rare PVCs. There is no evidence of diagnostic ischemic ST deviation. FINDINGS: Baseline echocardiogram revealed normal wall motion. At peak exercise there was normal wall motion augmentation with no hypokinesis or dyskinesis. CONCLUSION: 1. Good exercise tolerance with normal electrocardiograph response to exercise and rare premature ventricular contractions. 2. Normal stress echocardiogram with no evidence of stress-induced ischemia.
[2016-12-25 11:46] VITALS: BP 125/84; PULSE 80; TEMP 98.1
--- NOTE | 2016-12-25 13:13 | P.DS ---
Providers Date of admission: 12/22/16 23:49 Attending physician: Bonnie Wells Consults: 12/22/16 23:12 Consult Physician Urgent Consulting Provider: [facility] Consult Reason/Comments: unstable angina Do you want consulting provider notified?: Yes Primary care physician: Bonnie Wells Hospital Course: 1. Chest pain: AR ruled out. Stress test negative. Troponin negative 3 sets 2. History of colitis hemoglobin stable at 15.8 3. Leukocytosis likely reactive Hospital course This is a 36-year-old male who presented with chest pain radiating down left arm. Symptoms have now resolved. He was evaluated by cardiology. Troponins negative 3 sets EKG showed no significant abnormality. Chest x-ray negative. Patient underwent stress echo today which was negative. His been cleared by cardiology for discharge. His chest pain-free. He will follow-up with Dr. Dr. Wells in 1 week. Patient does have a history of colitis he has been having some rectal bleeding. Hemoglobin has remained stable. He'll follow-up with Dr. Dr. Wells in 1 week. At this time we'll discontinue his Motrin due to his bleeding. Patient Condition at Discharge: Stable Plan - Discharge Summary Discharge Medication List Albuterol Inhaler [Ventolin Hfa Inhaler] 1 puff INHALATION RT-Q4H PRN 12/22/16 [ History] Icy Hot Rub 1 applic TOPICAL DAILY PRN 12/22/16 [History] Loratadine [Claritin] 10 mg PO DAILY 12/22/16 [History] Follow up Appointment(s)/Referral(s): Evans Ortega MD [STAFF PHYSICIAN] - As Needed (Left patient's information and office will call patient for follow-up and appointment) Bonnie Wells MD [Primary Care Provider] - 1 Week Patient Instructions/Handouts: Chest Pain (GEN) Activity/Diet/Wound Care/Special Instructions: Diet: low cholesterol Activity: as tolerated Discharge Disposition: HOME SELF-CARE
== END 2016-12-25 13:35 | disposition home or self-care (01) ==
LOC: EC 18:05 → 3SUR 23:49 → 3OBS 12-23 17:43
PROVIDERS: ADMIT Internal Medicine; ATTEND Internal Medicine
DX: I20.0 Unstable angina (principal); K52.9 Noninfective gastroenteritis and colitis, unspecified; E11.9 Type 2 diabetes mellitus without complications; E66.9 Obesity, unspecified; J45.909 Unspecified asthma, uncomplicated; E78.5 Hyperlipidemia, unspecified; Z82.49 Family history of ischemic heart disease and other diseases of the circulatory system; Z86.73 Personal history of transient ischemic attack (TIA), and cerebral infarction without residual deficits; Z79.899 Other long term (current) drug therapy; Z79.1 Long term (current) use of non-steroidal anti-inflammatories (NSAID); Z91.041 Radiographic dye allergy status; Z91.018 Allergy to other foods; Z87.19 Personal history of other diseases of the digestive system; Z83.3 Family history of diabetes mellitus; Z68.31 Body mass index [BMI] 31.0-31.9, adult; Z91.19 Patient's noncompliance with other medical treatment and regimen
CPT/HCPCS: 96376 ×2; 96361 ×2; 96375 ×2; 99285 ×2; 96365; 96366; 36415; 93005 ×2; 93017; 93306; 93350; 80061; 80053; 82150; 82550 ×2; 82553 ×2; 83690; 83735; 84484 ×2; 85025; 85610; 85730 ×2; 81003; 74022; G0378 ×4; J1644 ×2; J2405

== ENCOUNTER 2017-01-15 14:11 | Observation (INO) | payer OTHER ==
[2017-01-15] MEDS ORDERED: ASPIRIN 81 MG CHEW PO STA (14:25)
--- NOTE | 2017-01-15 14:39 | ED ---
General Adult HPI - General Chief complaint: Chest Pain Stated complaint: Chest Pain Time Seen by Provider: 01/15/17 14:13 Source: patient, RN notes reviewed Mode of arrival: EMS Limitations: no limitations - History of Present Illness Initial comments: Patient is a 36-year-old male who presents emergency room today with chief complaint of chest pain. He does admit that he was at work earlier today began feeling a pressure and heaviness over the anterior chest wall. He does admit that did not seem to be letting up and is different than pain that he had previously just a few weeks ago he was seen here in the emergency room and admitted to the hospital. Patient does admit that EMS was called. He did receive aspirin and nitro sublingually which did relieve his symptoms. He states that this time he is currently pain-free. States he was feeling nauseated at time with these other symptoms but no longer has any symptoms currently. He denies any other complaints or symptoms at this time. Patient denies any recent fever, chills, back pain, abdominal pain, vomiting, numbness or tingling, dysuria or hematuria, constipation or diarrhea, headaches or visual changes, or any other complaints. - Related Data Home Medications Medication Instructions Recorded Confirmed Albuterol Inhaler [Ventolin Hfa 1 puff INHALATION RT-Q4H PRN 12/22/16 01/15/17 Inhaler] Loratadine [Claritin] 10 mg PO DAILY 12/22/16 01/15/17 Aspirin 81 mg PO DAILY 01/15/17 01/15/17 Atorvastatin [Lipitor] 20 mg PO DAILY 01/15/17 01/15/17 Allergies Allergy/AdvReac Type Severity Reaction Status Date / Time cashew nut Allergy Swelling Verified 01/15/17 14:29 Iodinated Contrast Media - Allergy Nausea & Verified 01/15/17 14:29 Oral and Vomiting & [Iodinated Contrast Media - Diarrhea IV Dye] Review of Systems ROS Statement: Those systems with pertinent positive or pertinent negative responses have been documented in the HPI. ROS Other: All systems not noted in ROS Statement are negative. Past Medical History Past Medical History: Asthma, CVA/TIA, Diabetes Mellitus, Musculoskeletal Disorder Additional Past Medical History / Comment(s): COLITIS, pain lower back and feet History of Any Multi-Drug Resistant Organisms: None Reported Past Surgical History: Appendectomy Additional Past Surgical History / Comment(s): Cassius ing. hernia repair x2 each side. BACK INJECTIONS. Past Anesthesia/Blood Transfusion Reactions: Previous Problems w/ Anesthesia Additional Past Anesthesia/Blood Transfusion Reaction / Comment(s): slow to wake up Past Psychological History: No Psychological Hx Reported Smoking Status: Never smoker Past Alcohol Use History: None Reported Past Drug Use History: None Reported - Past Family History Father Family Medical History: Diabetes Mellitus, Hypertension Additional Family Medical History / Comment(s): CA Mother Family Medical History: Diabetes Mellitus, Hypertension Additional Family Medical History / Comment(s): CA. General Exam - General Exam Comments Initial Comments: General: The patient is awake and alert, in no distress, and does not appear acutely ill. Eye: Pupils are equal, round and reactive to light, extra-ocular movements are intact. No nystagmus. There is normal conjunctiva bilaterally. No signs of icterus. Ears, nose, mouth and throat: There are moist mucous membranes and no oral lesions. Neck: The neck is supple, there is no tenderness or JVD. Cardiovascular: There is a regular rate and rhythm. No murmur, rub or gallop is appreciated. Respiratory: Lungs are clear to auscultation, respirations are non-labored, breath sounds are equal. No wheezes, stridor, rales, or rhonchi. Gastrointestinal: Soft, non-distended, non-tender abdomen without masses or organomegaly noted. There is no rebound or guarding present. No CVA tenderness. Bowel sounds are unremarkable. Musculoskeletal: Normal ROM, no tenderness. Strength 5/5. Sensation intact. Pulses equal bilaterally 2+. Neurological: A&O x 3. CN II-XII intact, There are no obvious motor or sensory deficits. Coordination appears grossly intact. Speech is normal. Skin: Skin is warm and dry and no rashes or lesions are noted. Psychiatric: Cooperative, appropriate mood & affect, normal judgment. Limitations: no limitations Course Vital Signs 01/15/17 01/15/17 14:26 14:29 Temperature 98.5 F Pulse Rate 95 Pulse Rate [ 95 Rubber Press Tender ] Respiratory 20 Rate Blood Pressure 142/85 O2 Sat by Pulse 95 Oximetry EKG Findings - EKG Comments: EKG Findings:: KG performed at 1417: Shows normal sinus rhythm at 95 bpm. [place] interval 134. QRS 92. QT/QTc 348/437 . right bundle branch block. Previous EKG on 12/22/2016 shows no acute change. Medical Decision Making - Medical Decision Making Patient reexamined at this time shows no signs of distress. Patient's labs been reviewed are unremarkable. Negative cardiac enzymes of the initial set. EKG shows no change from previous. Patient currently pain-free at this time after one sublingual nitroglycerin given by EMS. Patient will be admitted to hospital for serial enzymes and cardiology consult. Was discussed with admitting physician Dr. Delatorre who will admit the patient. Patient family are aware the plan states understanding. - Lab Data Result diagrams: 01/15/17 14:25 01/15/17 14:25 Lab Results 01/15/17 01/15/17 01/15/17 Range/Units 14:25 14:25 14:25 WBC 11.1 H (3.8-10.6) k/uL RBC 4.74 (4.30-5.90) m/uL Hgb 14.5 (13.0-17.5) gm/dL Hct 42.3 (39.0-53.0) % MCV 89.2 (80.0-100.0) fL MCH 30.6 (25.0-35.0) pg MCHC 34.3 (31.0-37.0) g/dL RDW 12.4 (11.5-15.5) % Plt Count 315 (150-450) k/uL Neutrophils % 71 % Lymphocytes % 15 % Monocytes % 6 % Eosinophils % 6 % Basophils % 1 % Neutrophils # 7.9 H (1.3-7.7) k/uL Lymphocytes # 1.7 (1.0-4.8) k/uL Monocytes # 0.6 (0-1.0) k/uL Eosinophils # 0.7 (0-0.7) k/uL Basophils # 0.1 (0-0.2) k/uL PT (9.0-12.0) sec INR (<1.1) APTT (22.0-30.0) sec Sodium 142 (137-145) mmol/L Potassium 3.7 (3.5-5.1) mmol/L Chloride 108 H (98-107) mmol/L Carbon Dioxide 22 (22-30) mmol/L Anion Gap 12 mmol/L BUN 16 (9-20) mg/dL Creatinine 0.92 (0.66-1.25) mg/dL Est GFR (MDRD) Af Amer >60 (>60 ml/min/1.73 sqM) Est GFR (MDRD) Non-Af >60 (>60 ml/min/1.73 sqM) Glucose 155 H (74-99) mg/dL Calcium 9.7 (8.4-10.2) mg/dL Magnesium 1.7 (1.6-2.3) mg/dL Total Bilirubin 0.6 (0.2-1.3) mg/dL AST 35 (17-59) U/L ALT 61 (21-72) U/L Alkaline Phosphatase 99 (38-126) U/L Total Creatine Kinase 149 (55-170) U/L CK-MB (CK-2) 0.8 (0.0-2.4) ng/mL CK-MB (CK-2) Rel Index 0.5 Troponin I <0.012 (0.000-0.034) ng/mL Total Protein 6.7 (6.3-8.2) g/dL Albumin 4.2 (3.5-5.0) g/dL 01/15/17 Range/Units 14:25 WBC (3.8-10.6) k/uL RBC (4.30-5.90) m/uL Hgb (13.0-17.5) gm/dL Hct (39.0-53.0) % MCV (80.0-100.0) fL MCH (25.0-35.0) pg MCHC (31.0-37.0) g/dL RDW (11.5-15.5) % Plt Count (150-450) k/uL Neutrophils % % Lymphocytes % % Monocytes % % Eosinophils % % Basophils % % Neutrophils # (1.3-7.7) k/uL Lymphocytes # (1.0-4.8) k/uL Monocytes # (0-1.0) k/uL Eosinophils # (0-0.7) k/uL Basophils # (0-0.2) k/uL PT 10.5 (9.0-12.0) sec INR 1.0 (<1.1) APTT 23.5 (22.0-30.0) sec Sodium (137-145) mmol/L Potassium (3.5-5.1) mmol/L Chloride (98-107) mmol/L Carbon Dioxide (22-30) mmol/L Anion Gap mmol/L BUN (9-20) mg/dL Creatinine (0.66-1.25) mg/dL Est GFR (MDRD) Af Amer (>60 ml/min/1.73 sqM) Est GFR (MDRD) Non-Af (>60 ml/min/1.73 sqM) Glucose (74-99) mg/dL Calcium (8.4-10.2) mg/dL Magnesium (1.6-2.3) mg/dL Total Bilirubin (0.2-1.3) mg/dL AST (17-59) U/L ALT (21-72) U/L Alkaline Phosphatase (38-126) U/L Total Creatine Kinase (55-170) U/L CK-MB (CK-2) (0.0-2.4) ng/mL CK-MB (CK-2) Rel Index Troponin I (0.000-0.034) ng/mL Total Protein (6.3-8.2) g/dL Albumin (3.5-5.0) g/dL Disposition Clinical Impression: Chest pain Disposition: ADMITTED IP TO THIS HOSP Condition: Stable Referrals: Bonnie Wells MD [Primary Care Provider] - 1-2 days Time of Disposition: 15:53
[2017-01-15 14:40] LABS: Basophils # (A) 0.1 k/uL (0-0.2); Basophils % (A) 1 %; CH 31.6; CHCM 35.5; Eosinophils # (A) 0.7 k/uL (0-0.7); Eosinophils % (A) 6 %; HCT 42.3 % (39.0-53.0); HDW 2.53; HGB 14.5 gm/dL (13.0-17.5); Luc # (Auto) 0.19; Luc % (Auto) 2; Lymphocytes # (A) 1.7 k/uL (1.0-4.8); Lymphocytes % (A) 15 %; MCH 30.6 pg (25.0-35.0); MCHC 34.3 g/dL (31.0-37.0); MCV 89.2 fL (80.0-100.0); Mean Platelet Volume 6.5; Monocytes # (A) 0.6 k/uL (0-1.0); Monocytes % (A) 6 %; Neutrophils # (A) 7.9 k/uL (1.3-7.7); Neutrophils % (A) 71 %; RBC 4.74 m/uL (4.30-5.90); RDW 12.4 % (11.5-15.5); WBC 11.1 k/uL (3.8-10.6)
[2017-01-15 14:49] LABS: Partial Thromboplastin Time 23.5 sec (22.0-30.0); Prothrombin Time 10.5 sec (9.0-12.0)
[2017-01-15 14:52] LABS: ALT 61 U/L (21-72); AST 35 U/L (17-59); Alkaline Phosphatase 99 U/L (38-126); Anion Gap 12 mmol/L; Blood Urea Nitrogen 16 mg/dL (9-20); Calcium 9.7 mg/dL (8.4-10.2); Carbon Dioxide 22 mmol/L (22-30); Chloride 108 mmol/L (98-107); Glucose 155 mg/dL (74-99); Magnesium 1.7 mg/dL (1.6-2.3); Non-African American GFR(MDRD) >60 (>60 ml/min/1.73 sqM); Potassium 3.7 mmol/L (3.5-5.1); Sodium 142 mmol/L (137-145); Total Bilirubin 0.6 mg/dL (0.2-1.3); Total Protein 6.7 g/dL (6.3-8.2)
--- NOTE | 2017-01-15 15:03 | XR ---
EXAMINATION TYPE: XR chest 2V DATE OF EXAM: 01/15/2017 COMPARISON: 04/22/2011 INDICATION: Chest pain TECHNIQUE: Frontal and lateral views of the chest are obtained. FINDINGS: The heart size is normal. The pulmonary vasculature is normal. The lungs are clear. IMPRESSION: 1. No acute pulmonary process.
[2017-01-15 15:06] LABS: Creatine Kinase 149 U/L (55-170)
[2017-01-15 15:19] LABS: Creatine Kinase MB 0.8 ng/mL (0.0-2.4); Troponin I <0.012 ng/mL (0.000-0.034)
[2017-01-15] MEDS ORDERED: HEPARIN SODIUM,PORCINE/D5W PMX 25,000 UNIT in DEXTROSE/WATER 1 500ML.BAG IV SCH (16:00)
[2017-01-15] MEDS ORDERED: SODIUM CHLORIDE 0.9% 1,000 ML IV ONE (16:00)
[2017-01-15] MEDS ORDERED: HEPARIN SODIUM,PORCINE 5,000 UNIT/ML 1 ML VIAL IV ONE (16:00)
[2017-01-15 17:13] LABS: Glucose,Whole Blood 91 mg/dL (75-99)
[2017-01-15] MEDS: NITROGLYCERIN OINT 1 INCH/GM PACKET TOPICAL SCH (17:37)
[2017-01-15 20:54] LABS: Glucose,Whole Blood 105 mg/dL (75-99)
[2017-01-15 21:03] LABS: Creatine Kinase 143 U/L (55-170)
[2017-01-15 21:15] LABS: Creatine Kinase MB 0.9 ng/mL (0.0-2.4); Troponin I <0.012 ng/mL (0.000-0.034)
[2017-01-15 22:27] LABS: Hemoglobin A1C 5.7 % (4.2-6.1)
[2017-01-16] MEDS: NITROGLYCERIN OINT 1 INCH/GM PACKET TOPICAL SCH ×2 (00:26→04:45)
[2017-01-16 03:46] LABS: Cholesterol 103 mg/dL (<200); Creatine Kinase 146 U/L (55-170); HDL Cholesterol 29 mg/dL (40-60); Triglycerides 190 mg/dL (<150)
[2017-01-16 03:59] LABS: Creatine Kinase MB 0.8 ng/mL (0.0-2.4); Troponin I <0.012 ng/mL (0.000-0.034)
[2017-01-16 06:53] LABS: Glucose,Whole Blood 126 mg/dL (75-99)
[2017-01-16] MEDS ORDERED: ATORVASTATIN 20 MG TAB PO SCH (09:00)
[2017-01-16] MEDS ORDERED: ASPIRIN 325 MG TAB PO SCH (09:00)
--- NOTE | 2017-01-16 09:54 | CONS ---
DATE OF CONSULTATION: Mr. Yun is a 36-year-old male with no prior history of coronary artery disease, who presented with symptoms of chest discomfort. He was admitted to the hospital end of December with symptoms of chest pain at that time and subsequent to that, underwent a stress echocardiogram, when he had an excellent exercise tolerance, but no evidence of stress-induced ischemia. His pain initially was lasting for very brief periods of time. 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 Patient denies any significant change in his breathing. No dizziness. No palpitation. No PND, orthopnea, or peripheral edema. He has no prior cardiac history. His coronary risk factors are negative for hypertension, diabetes. He has mild hyperlipidemia. He has a family history of coronary artery disease in his grandfather and uncle, his father had a history of stroke. His medications at home included Lipitor 20 mg daily, Claritin 10 mg daily, aspirin and albuterol. REVIEW OF SYSTEMS: RESPIRATORY SYSTEM: History of asthma, but it has been stable. No recent wheezing, cough. GI SYSTEM: He has history of colitis With GI bleeding. SYSTEM: No dysuria or hematuria. NERVOUS SYSTEM: No history of stroke or seizure. PHYSICAL EXAMINATION: A 36-year-old male, alert, oriented, in no apparent distress. Blood pressure 115/60 with a heart rate in the 60s. HEAD: Normocephalic. EYES: Sclerae nonicteric. NECK: Good upstroke. No bruit. No jugular venous distention. LUNGS: Clear to auscultation. HEART: Regular rate and rhythm. S1, S2, no S3, no S4. No murmur or rub. Chest wall with chest wall tenderness, reproducing the pain. ABDOMEN: Soft, nontender, positive bowel sounds. No organomegaly. EXTREMITIES: No edema. Intact distal pulses. EKG revealed sinus mechanism, normal axis and intervals with incomplete right bundle-branch block. Troponin less than 0.012 for 3 samples. Cholesterol 103, LDL of 36, BUN and creatinine of 16 and 0.92. Hemoglobin of 14.5. IMPRESSION: 1. Chest discomfort, atypical for ischemic heart disease, probably noncardiac. 2. Musculoskeletal pain and most likely related to his work pattern. RECOMMENDATIONS From the cardiac standpoint, I will stop his heparin and nitrate, increase his level of activity. I would expect he should be able to be discharged home today. Patient may benefit to be on a low-intensity work, which apparently is available at work. This way he will relax his chest wall tenderness. Depending on his progress, further recommendation will be made. Thank you for this consult.
[2017-01-16 11:29] VITALS: BP 118/65; PULSE 65; RESP 18; TEMP 97.8
[2017-01-16 12:02] LABS: Glucose,Whole Blood 91 mg/dL (75-99)
--- NOTE | 2017-01-16 14:03 | P.HPIM ---
History of Present Illness H&P Date: 01/16/17 Chief Complaint: Chest pain Patient is a 36-year-old male who presents emergency room today with chief complaint of chest pain. He states that he was at work earlier today and began feeling a pressure and heaviness over the anterior chest wall. He states that did not seem to be letting up and is different than pain that he had previously just a few weeks ago he was seen here in the emergency room and admitted to the hospital. Patient does admit that EMS was called. He did receive aspirin and nitro sublingually which did relieve his symptoms. He states that this time he is currently pain-free. States he was feeling nauseated at time with these other symptoms but no longer has any symptoms currently. He denies any other complaints or symptoms at this time. Patient denies any recent fever, chills, back pain, abdominal pain, vomiting, numbness or tingling, dysuria or hematuria , constipation or diarrhea, headaches or visual changes, or any other complaints. Patient had previous episodes of chest pain he was seen by Dr. Ortega and as outpatient he had a stress test as outpatient 2 weeks ago Past Medical History Past Medical History: Asthma, Chest Pain / Angina, CVA/TIA, Musculoskeletal Disorder Additional Past Medical History / Comment(s): RECENT STRESS TEST-NEG. COLITIS, pain lower back and feet "I'M ON ABX FOR BAD TOOTH", "I'M NOT DIABETIC NOW-I USED TO TAKE MEDS BUT OFF THEM FOR A WHILE NOW AND NO BS CHECKS". History of Any Multi-Drug Resistant Organisms: None Reported Past Surgical History: Appendectomy Additional Past Surgical History / Comment(s): Cassius ing. hernia repair x2 each side. BACK INJECTIONS. Past Anesthesia/Blood Transfusion Reactions: Previous Problems w/ Anesthesia Additional Past Anesthesia/Blood Transfusion Reaction / Comment(s): slow to wake up Past Psychological History: No Psychological Hx Reported Additional Psychological History / Comment(s): WORKS FOR [employer] Smoking Status: Never smoker Past Alcohol Use History: None Reported Past Drug Use History: None Reported - Past Family History Father Family Medical History: Diabetes Mellitus, Hypertension Additional Family Medical History / Comment(s): [place] Mother Family Medical History: Diabetes Mellitus, Hypertension Additional Family Medical History / Comment(s): [place]. Medications and Allergies Home Medications Medication Instructions Recorded Confirmed Type Albuterol Inhaler [Ventolin Hfa 1 puff INHALATION RT-Q4H PRN 12/22/16 01/15/17 History Inhaler] Loratadine [Claritin] 10 mg PO DAILY 12/22/16 01/15/17 History Aspirin 81 mg PO DAILY 01/15/17 01/15/17 History Atorvastatin [Lipitor] 20 mg PO DAILY 01/15/17 01/15/17 History Allergies Allergy/AdvReac Type Severity Reaction Status Date / Time cashew nut Allergy Swelling Verified 01/15/17 14:29 Iodinated Contrast Media - Allergy Nausea & Verified 01/15/17 14:29 Oral and Vomiting & [Iodinated Contrast Media - Diarrhea IV Dye] Physical Exam Vitals: Vital Signs Temp Pulse Pulse Pulse Resp BP BP 01/16/17 12:00 18 01/16/17 11:28 97.8 F 65 18 118/65 01/16/17 08:00 14 01/16/17 07:57 97.5 F L 80 14 133/83 01/16/17 04:00 98.8 F 59 L 16 115/67 01/16/17 03:40 60 18 01/15/17 23:54 67 18 01/15/17 23:26 97.9 F 74 18 118/79 01/15/17 20:00 98.0 F 86 16 129/88 01/15/17 17:07 97.6 F 63 16 153/88 01/15/17 16:20 86 16 122/70 01/15/17 14:29 95 01/15/17 14:26 98.5 F 95 20 142/85 Pulse Ox 01/16/17 12:00 01/16/17 11:28 95 01/16/17 08:00 01/16/17 07:57 93 L 01/16/17 04:00 95 01/16/17 03:40 01/15/17 23:54 01/15/17 23:26 98 01/15/17 20:00 93 L 01/15/17 17:07 96 01/15/17 16:20 97 01/15/17 14:29 01/15/17 14:26 95 Intake and Output 01/15/17 01/16/17 01/16/17 22:59 06:59 14:59 Intake Total 91.667 165.947 Balance 91.667 165.947 Intake: Intake, IV Titration 91.667 165.947 Amount Heparin Sodium,Porcine/ 91.667 165.947 D5w Pmx 25,000 unit In Dextrose/Water 1 500ml. bag @ 11.604 UNITS/KG/HR 20 mls/hr IV .Q24H [facility] Rx #:[id number] Other: Voiding Method Toilet Toilet Toilet # Voids 2 Weight 87.7 kg HEENT head normocephalic and atraumatic Neck is supple no JVD no goiter no lymphadenopathy Chest is clear to auscultation no crackles no wheezing Cardiac exam reveals regular heart sounds no gallops no murmurs Abdomen is soft nontender no organomegaly Extremity exam reveals no edema no cyanosis or clubbing Results CBC & Chem 7: 01/15/17 14:25 01/15/17 14:25 Labs: Abnormal Lab Results - Last 24 Hours (Table) 01/15/17 01/15/17 01/15/17 Range/Units 14:25 14:25 20:26 WBC 11.1 H (3.8-10.6) k/uL Neutrophils # 7.9 H (1.3-7.7) k/uL APTT 32.9 H (22.0-30.0) sec Chloride 108 H (98-107) mmol/L Glucose 155 H (74-99) mg/dL POC Glucose (mg/dL) (75-99) mg/dL Triglycerides (<150) mg/dL HDL Cholesterol (40-60) mg/dL 01/15/17 01/16/17 01/16/17 Range/Units 20:49 02:55 02:55 WBC (3.8-10.6) k/uL Neutrophils # (1.3-7.7) k/uL APTT 37.7 H (22.0-30.0) sec Chloride (98-107) mmol/L Glucose (74-99) mg/dL POC Glucose (mg/dL) 105 H (75-99) mg/dL Triglycerides 190 H (<150) mg/dL HDL Cholesterol 29 L (40-60) mg/dL 01/16/17 Range/Units 06:52 WBC (3.8-10.6) k/uL Neutrophils # (1.3-7.7) k/uL APTT (22.0-30.0) sec Chloride (98-107) mmol/L Glucose (74-99) mg/dL POC Glucose (mg/dL) 126 H (75-99) mg/dL Triglycerides (<150) mg/dL HDL Cholesterol (40-60) mg/dL Thrombosis Risk Factor Assmnt - Choose All That Apply Any of the Below Risk Factors Present?: Yes Each Factor Represents 1 point: Obesity (BMI >25) Other Risk Factors: No Other congenital or acquired thrombophilia - If yes, enter type in comment: No Thrombosis Risk Factor Assessment Total Risk Factor Score: 1 Thrombosis Risk Factor Assessment Level: Low Risk Assessment and Plan Plan: Episode of chest pain in a 36-year-old male 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
--- NOTE | 2017-01-16 14:06 | P.DS ---
Providers Date of admission: 01/15/17 16:11 Expected date of discharge: 01/16/17 Attending physician: Belia Delatorre Consults: 01/15/17 16:00 Consult Physician Stat Consulting Provider: [facility] Consult Reason/Comments: chest pain Do you want consulting provider notified?: Yes Primary care physician: Bonnie Blancojar [facility] Course: Diagnosis on discharge #1 chest pain most likely musculoskeletal in origin Hospital course patient is a 36-year-old male who presented to [facility] emergency room via EMS was episodes of severe chest pain he was evaluated in the emergency room serial EKGs and cardiac enzymes failed to reveal any evidence of cardiac ischemia. Patient had previous episodes of chest pain he was seen by Dr. Dr. Ortega as outpatient and has underwent a stress test recently that was negative. Patient was evaluated by Dr. Jackson as inpatient cardiology consultation no further testing was recommended at this time medication were reviewed and reordered patient was discharged home on 01/16 He will be followed in the office in 1-2 days patient was told to stay on light duties for the next 2 weeks Patient Condition at Discharge: Stable Plan - Discharge Summary New Discharge Prescriptions: Continue Loratadine [Claritin] 10 mg PO DAILY Albuterol Inhaler [Ventolin Hfa Inhaler] 1 puff INHALATION RT-Q4H PRN PRN Reason: Shortness Of Breath Aspirin 81 mg PO DAILY Atorvastatin [Lipitor] 20 mg PO DAILY Discharge Medication List Albuterol Inhaler [Ventolin Hfa Inhaler] 1 puff INHALATION RT-Q4H PRN 12/22/16 [ History] Loratadine [Claritin] 10 mg PO DAILY 12/22/16 [History] Aspirin 81 mg PO DAILY 01/15/17 [History] Atorvastatin [Lipitor] 20 mg PO DAILY 01/15/17 [History] Follow up Appointment(s)/Referral(s): Bonnie Wells MD [Primary Care Provider] - 1-2 days
== END 2017-01-16 14:15 | disposition home or self-care (01) ==
LOC: EC 14:11 → 3OBS 16:11
PROVIDERS: ADMIT Internal Medicine; ATTEND Internal Medicine
DX: R07.9 Chest pain, unspecified (principal); M79.1 Myalgia; R11.0 Nausea; J45.909 Unspecified asthma, uncomplicated; E78.5 Hyperlipidemia, unspecified; I45.10 Unspecified right bundle-branch block; Z86.73 Personal history of transient ischemic attack (TIA), and cerebral infarction without residual deficits; Z91.041 Radiographic dye allergy status; Z91.018 Allergy to other foods; Z82.49 Family history of ischemic heart disease and other diseases of the circulatory system; Z83.3 Family history of diabetes mellitus; Z79.899 Other long term (current) drug therapy; Z79.82 Long term (current) use of aspirin
CPT/HCPCS: 96365 ×2; 96376 ×2; 99285 ×2; 96366 ×2; 36415; 93005; 80061; 80053; 83036; 82550 ×2; 82553 ×2; 83735; 84484 ×2; 85025; 85610; 85730 ×2; 71020; G0378 ×2; J1644 ×2

== ENCOUNTER → 2017-02-02 | Outpatient (CLI) | payer OTHER ==
--- NOTE | 2017-02-02 22:06 | MR ---
EXAMINATION TYPE: MR brain wo con, MR angio head wo con DATE OF EXAM: 02/02/2017 7:26 PM COMPARISON: NONE HISTORY: Pain Left side of Head Multiplanar and multispin-echo imaging of the brain was performed . The ventricles, basal cisterns and sulci overlying the cerebral convexities are within normal limits. There is no evidence for midline shift or mass effect. Acute intracranial hemorrhage or extra-axial collection is not evident. The brain parenchyma reveals no abnormal increased signal. No acute edema is identified. Opacification right maxillary sinus with mild mucosal thickening in the ethmoid air cells. Mastoid ai r cells are well-aerated. IMPRESSION: Unremarkable MRI of the brain. Chronic sinusitis EXAMINATION TYPE: MR brain wo con, MR angio head wo con DATE OF EXAM: 02/02/2017 7:26 PM COMPARISON: NONE HISTORY: Pain Left side of Head Three-dimensional [id number] intracranial MRA was performed with multiple intensity projection im ages submitted and source data reviewed at the workstation. The vertebrobasilar system as well as intracranial portions of the internal carotid arteries and thei r major tributaries are patent. I do not see evidence for sizable aneurysm or vascular malformation. IMPRESSION: Normal study.
== END | disposition home or self-care (01) ==
LOC: RADMRIMAIN 18:35
PROVIDERS: ATTEND Internal Medicine
DX: R53.1 Weakness (principal)
CPT/HCPCS: 70544; 70551

== ENCOUNTER 2017-02-05 06:25 | Day surgery (SDC) | payer OTHER ==
[~2017-02-05 06:25] MED LIST changes: +ALPRAZolam 0.25 MG TAB PO PRN; +ALPRAZolam 0.5 MG TAB PO PRN; +ASPIRIN 325 MG TAB PO STA; +ATORVASTATIN 80 MG TAB PO STA; -LACTATED RINGERS 1,000 ML IV SCH; +NITROGLYCERIN SL TABS 0.4 MG TAB SUBLINGUAL PRN; +SODIUM CHLORIDE 0.9% 1,000 ML in EMPTY BAG 1 BAG IV ONE
[2017-02-05 06:47] VITALS: TEMP 98
[2017-02-05] MEDS ORDERED: MIDAZOLAM 2 MG/2 ML VIAL ONE (07:20)
[2017-02-05] MEDS ORDERED: LIDOCAINE 2% INJ 20 MG/ML (20 ML MDV) ONE ×2 (07:20→08:01)
[2017-02-05] MEDS ORDERED: HEPARIN SODIUM 1,000 UNIT/ML VIAL ONE (07:20)
[2017-02-05] MEDS ORDERED: HEPARIN SODIUM,PORCINE 30 ML 30 ML ONE (07:21)
[2017-02-05] MEDS ORDERED: VERAPAMIL 2.5 MG/ML 2 ML AMP ONE (07:25)
[2017-02-05] MEDS: MIDAZOLAM 2 MG/2 ML VIAL IV ONE ×3 (07:38→08:03)
[2017-02-05] MEDS: LIDOCAINE 2% INJ 20 MG/ML SQ ONE ×2 (07:38→08:03)
[2017-02-05] MEDS: VERAPAMIL SYRINGE (5 MG/10 ML) INTRAARTER ONE ×2 (07:42→08:16)
[2017-02-05] MEDS ORDERED: LIDOCAINE 2% INJ 20 MG/ML SQ ONE (08:03)
[2017-02-05] MEDS ORDERED: IOHEXOL 350 MG/ML 125ML BOTTLE INJ ONE (08:16)
[2017-02-05] MEDS ORDERED: RX INFO: IV CONTRAST WAS GIVEN 1 EACH MISC MISCELLANE PRN ×2 (08:31→08:32)
[2017-02-05] MEDS ORDERED: SODIUM CHLORIDE 0.9% 1,000 ML IV SCH (08:45)
--- NOTE | 2017-02-05 08:53 | P.PCN ---
Date of Procedure: 02/05/17 Preoperative Diagnosis: Unstable angina Postoperative Diagnosis: Atypical chest pain Procedure(s) Performed: Left heart catheterization and coronary angiography from the right femoral approach. Right radial approach was unsuccessful with inability to gain entry to the ascending aorta Implants: Anesthesia: other (Moderate conscious sedation was provided for a duration of 45 minutes with Versed and Benadryl) Indications for Procedure: Operative Findings: Description of Procedure: Left heart catheterization and coronary angiography Procedure note: Under local anesthesia and strict aseptic precautions a 6- [place] Citizen introducer was placed in the right radial artery. I could not gain access into the ascending aorta because of the configuration of the arch. I made multiple attempts with a regular wire and a Glidewire and also different catheters. I then explained to the patient and proceeded to perform the procedure from the right femoral approach. _Strict aseptic precautions and local anesthesia access into the right femoral artery was achieved. A 6-[place] Citizen introducer was placed. Using standard Daniela catheters a performed coronary angiography and a pigtail catheter was used to check LV pressures. LV gram was not performed. The sheath was taken out and manual compression applied and FemoStop applied. The radial sheath was taken out and TR band applied as per protocol with a good saturation the fingers of the right hand. Patient tolerated the procedure well without complications. Moderate conscious sedation was provided for 45 minutes with Versed and Benadryl. Cardiac catheterization findings: The left ventral end-diastolic pressure was about 19 mmHg without any gradient across the aortic valve. Coronary angiography findings: Left Main coronary artery: Is a short disease-free vessel that bifurcates into LAD and circumflex. Left anterior descending coronary artery: Good caliber vessel exits along the antral wall gives off a good-sized diagonal branch and several septal branches curves over the apex to supply the inferoapical portion of the left ventricle. No significant disease in the LAD. Left posterior circumflex coronary artery: Nondominant vessel fair caliber gives off a good-sized obtuse marginal branch that trifurcates into 3 branches and then continues distally as a small branch. Minor irregularities no significant disease. Right coronary artery: Dominant vessel no significant disease distally bifurcates into a large PDA and PLV both of his supply a fair amount of myocardium. Minor irregularities no significant disease. Left ventriculogram: Not performed. Final impression and plan: This patient has no significant obstructive CAD. Minor irregularities are noted. He has a right dominant system with slightly elevated filling pressures. Procedure was performed from the right femoral approach after unsuccessful attempt from right radial. Both sites were clean and dry with good pulses. Patient will be observed closely and discharged later on today and I will see him in the office on the and Dr. Ortega will see him on the . Findings are discussed with the patient and family. He will not return to work until I see him.
[2017-02-05 11:31] VITALS: BP 139/79; PULSE 86; RESP 18
[2017-02-05] MEDS ORDERED: IBUPROFEN 400 MG TAB PO STA (12:48)
== END 2017-02-05 17:46 | disposition home or self-care (01) ==
LOC: CATHCVL 06:25
PROVIDERS: ATTEND Internal Medicine Interventional Cardiology
DX: R07.89 Other chest pain (principal); I20.0 Unstable angina; R07.2 Precordial pain; Z82.49 Family history of ischemic heart disease and other diseases of the circulatory system; E78.5 Hyperlipidemia, unspecified; R94.31 Abnormal electrocardiogram [ECG] [EKG]; Z79.82 Long term (current) use of aspirin; Z79.899 Other long term (current) drug therapy; Z88.6 Allergy status to analgesic agent; Z88.8 Allergy status to other drugs, medicaments and biological substances; Z91.09 Other allergy status, other than to drugs and biological substances
CPT/HCPCS: 93458; 99152; C1769 ×4; C1894 ×2; J2001; J2250; J1644; Q9967

== ENCOUNTER → 2017-02-07 | Outpatient (CLI) | payer OTHER ==
--- NOTE | 2017-02-07 16:52 | US ---
EXAMINATION TYPE: US venous doppler duplex LE RT DATE OF EXAM: 02/07/2017 4:41 PM COMPARISON: NONE CLINICAL HISTORY: I82.409 DVT, right lower extremity. SIDE PERFORMED: Right TECHNIQUE: The lower extremity deep venous system is examined utilizing real time linear array sonog luis with graded compression, doppler sonography and color-flow sonography. VESSELS IMAGED: External Iliac Vein (EIV) Common Femoral Vein Deep Femoral Vein Greater Saphenous Vein * Femoral Vein Popliteal Vein Proximal Calf Veins (* superficial vessels) Right Leg: Negative for DVT IMPRESSION: No evidence of deep venous thrombosis in the right leg.
== END | disposition home or self-care (01) ==
LOC: RADUSMAIN 16:20
PROVIDERS: ATTEND Internal Medicine Interventional Cardiology
DX: I82.401 Acute embolism and thrombosis of unspecified deep veins of right lower extremity (principal)

== ENCOUNTER → 2017-06-20 | Outpatient (CLI) | payer OTHER ==
--- NOTE | 2017-06-20 21:59 | MR ---
EXAMINATION TYPE: MR knee LT wo con DATE OF EXAM: 06/20/2017 COMPARISON: Left knee x-ray June 01, 2017 HISTORY: Left knee pain and sprain injury per order. In her knee pain with swelling for 2 weeks after injury per patient. TECHNIQUE: Multiplanar, multisequence images of the left knee is performed without IV contrast. FINDINGS: MEDIAL MENISCUS: Anterior horn is intact without tear. Triangular shaped increased signal posterior h orn medial meniscus does not extend to articular surface. LATERAL MENISCUS: Anterior and posterior horns are intact without tear. CRUCIATE LIGAMENTS: The anterior and posterior cruciate ligaments are intact and unremarkable. COLLATERAL LIGAMENTS: The medial collateral ligament and lateral collateral ligament complex are inta ct and unremarkable. EXTENSOR MECHANISM: Visualized quadriceps and patellar tendons are intact. EFFUSION: There is small suprapatellar joint effusion. POPLITEAL CYST: No popliteal/roblero cyst. TRICOMPARTMENT SPACES: Tricompartment joint spaces are fairly well-maintained. No significant spurrin g is seen. CARTILAGE: Tricompartment articular cartilage is maintained. There is no significant chondromalacia p atella. BONE MARROW SIGNAL: No focal abnormal marrow signal is appreciated. OTHER: No additional significant abnormality is appreciated. IMPRESSION: Intrasubstance tear posterior horn medial meniscus. No full-thickness meniscal or ligamen tous tear is seen.
== END | disposition home or self-care (01) ==
LOC: RADMRIMAIN 11:05
PROVIDERS: ATTEND Emergency Medicine
DX: S83.242A Other tear of medial meniscus, current injury, left knee, initial encounter (principal)

== ENCOUNTER → 2017-09-13 | Outpatient (CLI) | payer OTHER ==
[2017-09-13 15:51] LABS: Basophils # (A) 0.1 k/uL (0-0.2); Basophils % (A) 1 %; Eosinophils # (A) 0.6 k/uL (0-0.7); Eosinophils % (A) 6 %; HCT 45.7 % (39.0-53.0); HGB 15.4 gm/dL (13.0-17.5); Lymphocytes # (A) 2.3 k/uL (1.0-4.8); Lymphocytes % (A) 23 %; MCH 30.9 pg (25.0-35.0); MCHC 33.8 g/dL (31.0-37.0); MCV 91.5 fL (80.0-100.0); Mean Platelet Volume 6.2; Monocytes # (A) 0.7 k/uL (0-1.0); Monocytes % (A) 7 %; Neutrophils # (A) 6.3 k/uL (1.3-7.7); Neutrophils % (A) 62 %; Platelet Count 321 k/uL (150-450); RBC 4.99 m/uL (4.30-5.90); WBC 10.2 k/uL (3.8-10.6)
[2017-09-13 16:07] LABS: Potassium 4.5 mmol/L (3.5-5.1)
== END | disposition home or self-care (01) ==
LOC: LABWHC1 15:31
PROVIDERS: ATTEND Orthopaedic Surgery
DX: Z01.812 Encounter for preprocedural laboratory examination (principal); M23.92 Unspecified internal derangement of left knee
CPT/HCPCS: 36415; 80051; 85025

== ENCOUNTER 2017-09-21 06:53 | Day surgery (SDC) | payer OTHER ==
[2017-09-18 12:02] VITALS: BMI 31.4
--- NOTE | 2017-09-20 10:27 | HP ---
HISTORY AND PHYSICAL CHIEF COMPLAINT: Left knee pain. 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 He notes intermittent locking and giving way ever since. He has tried medications in addition to therapy and an injection with only temporary partial relief. Currently he is working with restrictions. PAST MEDICAL HISTORY: Significant for asthma and hypercholesterolemia. CURRENT MEDICATIONS: 1. Lipitor. 2. Tramadol. He denies drug allergies. FAMILY HISTORY: Negative. SOCIAL HISTORY: Negative for current tobacco or alcohol use. 16 POINT REVIEW OF SYSTEMS: Otherwise reviewed and is noncontributory. PHYSICAL EXAMINATION: On examination, the patient is approximately 5 foot 5, 190 pounds of endomorphic habitus. HEENT exam is nonfocal. Neck is supple. He has painless passive motion of his left hip. Straight leg raise is negative. Active motion left knee is -10 to 120 degrees of flexion. He is tender about the medial joint line and medial patellar facet. He has a trace effusion. Collaterals are stable, Nargis is negative, Jo's is equivocal. He has pain with patellofemoral compression. His distal neurovascular exam appears intact in the left lower extremity. IMPRESSION: Internal derangement, left knee with possible patellar chondral injury versus femoral trochlear chondral injury. RECOMMENDATIONS: I talked to the patient at length regarding his condition and treatment options. At this point, he has continues to have pain and mechanical symptoms despite adequate conservative measures. After thorough discussion of his options, he opts to proceed with surgery. We will plan to proceed with arthroscopic evaluation with possible patellar chondroplasty and femoral trochlear chondroplasty. Risks and benefits were discussed at length in layman's terms. We will likely perform that as an outpatient procedure. MMODL / IJN: [id number] /
[~2017-09-21 06:53] MED LIST changes: -ALPRAZolam 0.25 MG TAB PO PRN; -ALPRAZolam 0.5 MG TAB PO PRN; -ASPIRIN 325 MG TAB PO STA; -ATORVASTATIN 80 MG TAB PO STA; +DEXAMETHASONE SOD PHOSPHATE 10 MG/ML 1 ML VIAL IV ONE; +HYDROmorphone 0.5 MG/0.5 ML SYRINGE IVP PRN; +LACTATED RINGERS 1,000 ML IV SCH; +MIDAZOLAM 2 MG/2 ML VIAL IV PRN; -NITROGLYCERIN SL TABS 0.4 MG TAB SUBLINGUAL PRN; +ONDANSETRON 4 MG/2 ML VIAL IVP ONE; -SODIUM CHLORIDE 0.9% 1,000 ML in EMPTY BAG 1 BAG IV ONE; +ceFAZolin IN SWFI 2 GM/20 ML SYRINGE IVP ONE
[2017-09-21] MEDS ORDERED: LIDOCAINE 1% 20 ML VIAL (10MG/ML) FOR IV START INTRADERMA ONE (07:24)
[2017-09-21] MEDS ORDERED: LIDOCAINE 1% INJ 10MG/ML (20 ML MDV) ONE (07:53)
[2017-09-21] MEDS ORDERED: PROPOFOL 10 MG/ML 20 ML VIAL IV ONE (07:53)
[2017-09-21] MEDS ORDERED: fentaNYL (PF) 50 MCG/ML 2 ML AMP ONE (07:53)
[2017-09-21] MEDS ORDERED: SUCCINYLCHOLINE CHLORIDE VIAL 200 MG/10 ML VIAL IV ONE (07:53)
[2017-09-21] MEDS ORDERED: EPINEPHrine (PF) 1 ML in SODIUM CHLORIDE 0.9% IRRIGATIO 3,000 ML IRRIGATION ONE ×4 (07:53)
--- NOTE | 2017-09-21 08:43 | P.OP ---
Date of Procedure: 09/21/17 Preoperative Diagnosis: Left knee internal derangement Postoperative Diagnosis: Left knee posterior medial meniscal tear, grade 2 chondral injury distal medial portion medial femoral condyle, grade 2 chondral injury femoral trochlea, reactive synovitis Procedure(s) Performed: Left knee arthroscopic partial medial meniscectomy/medial femoral chondrectomy/ femoral trochlear chondroplasty/partial synovectomy of the medial, lateral, and patellofemoral compartments Anesthesia: GETA Surgeon: Christo Dee Estimated Blood Loss (ml): 10 Pathology: none sent Condition: stable Disposition: PACU Indications for Procedure: The patient's a 37-year-old male who presents after injuring himself at work with persistent left knee pain and mechanical symptoms despite extensive conservative measures. A discussion of the risks and benefits of operative intervention versus continued conservative measures was made with patient. He opted to proceed with surgery. Operative risks to include infection, neurovascular injury, development of blood clots, possible incomplete resolution of symptoms, possible worsening of symptoms and need for subsequent procedures was discussed. Informed consent was obtained. Operative Findings: As below Description of Procedure: The patient was brought to the operating room, and after induction of general anesthesia examined the left knee. Collaterals were stable, Nargis was negative, and posterior drawer was negative. The left lower extremity was prepped and draped in normal fashion. A superior lateral portal was made through a 5 mm skin incision superior and lateral to the patella. This was used for outflow. A lateral portal was made through a 5 mm vertical skin incision lateral to the patella tendon above the joint line. Diagnostic arthroscopy was performed. A medial portals made through a similar incision medial to the patella tendon above the joint. On inspection of the medial compartment, a grade 2 chondral injury was noted involving the central medial portion of the medial femoral condyle. There was a loose chondral flap debrided back to stable base with a motorized shaver. An oblique tear involving the posterior most aspect medial meniscus was noted in the white- white junction. This debrided back to stable base with straight baskets. The remaining portion the medial meniscus was stable and intact. Reactive synovitis involving the anterior medial, anterolateral, and patellofemoral articulation was debrided with motorized shaver. On inspection of the notch, the ACL was intact. On inspection of the lateral compartment no significant chondral or meniscal pathology was noted. On inspection patellofemoral articulation, there was marked synovitis debrided with motorized shaver. A grade 2 chondral injury involving the central portion of the femoral trochlea was noted. There was a loose chondral fragment debrided back to stable base with a motorized shaver. The gutters were clear debris. The knee was then thoroughly irrigated. The portals were closed with Steri-Strips. A sterile dressing was applied in addition to a compression stocking. The patient was awoken from general anesthesia and transferred to recovery room in good condition. Blood loss was estimated at 10 mL. No complications were incurred.
[2017-09-21] MEDS ORDERED: HYDROmorphone 0.5 MG/0.5 ML SYRINGE IVP ONE ×6 (08:56→09:28)
[2017-09-21 09:03] VITALS: TEMP 97.7
[2017-09-21 10:03] VITALS: RESP 16
[2017-09-21] MEDS ORDERED: HYDROcodone/APAP 5-325MG 1 EACH TAB PO ONE (10:17)
[2017-09-21 11:03] VITALS: BP 115/77; PULSE 99
== END 2017-09-21 11:39 | disposition home or self-care (01) ==
LOC: OR 06:53
PROVIDERS: ATTEND Orthopaedic Surgery
DX: S83.242A Other tear of medial meniscus, current injury, left knee, initial encounter (principal); W22.8XXA Striking against or struck by other objects, initial encounter; Y99.0 Civilian activity done for income or pay; E78.5 Hyperlipidemia, unspecified; M65.862 Other synovitis and tenosynovitis, left lower leg; J45.909 Unspecified asthma, uncomplicated; E78.00 Pure hypercholesterolemia, unspecified; Z79.891 Long term (current) use of opiate analgesic; Z79.899 Other long term (current) drug therapy
CPT/HCPCS: 29881; J2250; J0330; J1100; J2405; J0171; J2001; J3010; J2704; J1170; J0690

== ENCOUNTER → 2018-01-18 | Outpatient (CLI) | payer OTHER ==
[2018-01-18 15:17] LABS: Basophils % (A) 0 %; Eosinophils # (A) 0.4 k/uL (0-0.7); Eosinophils % (A) 6 %; HCT 40.7 % (39.0-53.0); HGB 13.7 gm/dL (13.0-17.5); Lymphocytes # (A) 1.9 k/uL (1.0-4.8); Lymphocytes % (A) 26 %; MCH 29.9 pg (25.0-35.0); MCHC 33.6 g/dL (31.0-37.0); Mean Platelet Volume 6.3; Monocytes # (A) 0.6 k/uL (0-1.0); Monocytes % (A) 8 %; Neutrophils # (A) 4.3 k/uL (1.3-7.7); Neutrophils % (A) 58 %; Platelet Count 327 k/uL (150-450); RBC 4.57 m/uL (4.30-5.90); RDW 12.2 % (11.5-15.5); WBC 7.4 k/uL (3.8-10.6)
[2018-01-18 15:28] LABS: ALT 63 U/L (21-72); AST 41 U/L (17-59); Albumin 4.4 g/dL (3.5-5.0); Alkaline Phosphatase 91 U/L (38-126); Anion Gap 11 mmol/L; Blood Urea Nitrogen 17 mg/dL (9-20); Calcium 9.7 mg/dL (8.4-10.2); Carbon Dioxide 28 mmol/L (22-30); Chloride 105 mmol/L (98-107); Cholesterol 110 mg/dL (<200); Glucose 82 mg/dL (74-99); HDL Cholesterol 32 mg/dL (40-60); LDL Cholesterol,Calculated 41 mg/dL (0-99); Potassium 4.3 mmol/L (3.5-5.1); Sodium 144 mmol/L (137-145); Total Bilirubin 0.4 mg/dL (0.2-1.3); Total Protein 6.5 g/dL (6.3-8.2); Triglycerides 185 mg/dL (<150); Uric Acid 3.4 mg/dL (3.5-8.5)
[2018-01-18 20:32] LABS: Hemoglobin A1C 6.3 % (4.0-6.0)
== END | disposition home or self-care (01) ==
LOC: LABWHC1 14:56
PROVIDERS: ATTEND Internal Medicine
DX: E11.65 Type 2 diabetes mellitus with hyperglycemia (principal); I10 Essential (primary) hypertension; M10.00 Idiopathic gout, unspecified site
CPT/HCPCS: 36415; 80053; 80061; 82043; 82570; 83036; 84443; 84550; 85025

== ENCOUNTER → 2018-10-18 | Outpatient (CLI) | payer OTHER ==
--- NOTE | 2018-10-18 16:22 | XR ---
EXAMINATION TYPE: XR knee complete RT DATE OF EXAM: 10/18/2018 CLINICAL HISTORY: Right knee pain after jumping off a truck 4 days ago. TECHNIQUE: Three views of the right knee are obtained. COMPARISON: None. FINDINGS: There is no acute fracture/dislocation evident in right knee. The tri-compartment joint s paces appear within normal limits. The overlying soft tissue appears unremarkable. IMPRESSION: There is no acute fracture or dislocation in the right knee.
== END | disposition home or self-care (01) ==
LOC: RADXRMAIN 16:00
PROVIDERS: ATTEND Emergency Medicine
DX: S83.8X1A Sprain of other specified parts of right knee, initial encounter (principal)

== ENCOUNTER → 2018-11-26 | Outpatient (CLI) | payer OTHER ==
--- NOTE | 2018-11-26 08:37 | MR ---
EXAMINATION TYPE: MR knee RT wo con DATE OF EXAM: 11/26/2018 COMPARISON: Plain film 10/18/2018 HISTORY: S83.8X1D Sprain of right knee TECHNIQUE: Multiplanar, multisequence imaging of the right knee is performed without IV contrast. FINDINGS: MEDIAL MENISCUS: Some linear increased signal is present within the posterior horn the medial meniscu s, and there is linear signal at the inferior aspect of the medial meniscus on sagittal image 10, cor onal image 24 extending to the articular surface. LATERAL MENISCUS: Anterior and posterior horns are intact without tear. CRUCIATE LIGAMENTS: The anterior and posterior cruciate ligaments are intact and unremarkable. COLLATERAL LIGAMENTS: The medial collateral ligament and lateral collateral ligament complex are inta ct and unremarkable. EXTENSOR MECHANISM: Visualized quadriceps and patellar tendons are intact. EFFUSION: No significant suprapatellar joint effusion. POPLITEAL CYST: No popliteal/roblero cyst. TRICOMPARTMENT SPACES: Intact CARTILAGE: Grade 2 to grade III chondromalacia at the medial compartment BONE MARROW SIGNAL: No focal abnormal marrow signal is appreciated. OTHER: T2 intense lobulated and septated focus on coronal image 24 posterior to the meniscus may may represent a para meniscal cyst or ganglion cyst. IMPRESSION: Posterior horn medial meniscal tears as described
== END ==
LOC: RADMRIMAIN 07:32
PROVIDERS: ATTEND Emergency Medicine
DX: S83.241A Other tear of medial meniscus, current injury, right knee, initial encounter (principal)

== ENCOUNTER → 2018-11-26 | Outpatient (CLI) | payer OTHER ==
[2018-11-26 08:36] LABS: Basophils % (A) 1 %; Eosinophils # (A) 0.4 k/uL (0-0.7); Eosinophils % (A) 5 %; HCT 42.8 % (39.0-53.0); HGB 14.2 gm/dL (13.0-17.5); Lymphocytes # (A) 1.6 k/uL (1.0-4.8); Lymphocytes % (A) 22 %; MCH 29.6 pg (25.0-35.0); MCHC 33.1 g/dL (31.0-37.0); MCV 89.4 fL (80.0-100.0); Mean Platelet Volume 6.5; Monocytes # (A) 0.5 k/uL (0-1.0); Monocytes % (A) 7 %; Neutrophils # (A) 4.6 k/uL (1.3-7.7); Neutrophils % (A) 62 %; Platelet Count 294 k/uL (150-450); RBC 4.79 m/uL (4.30-5.90); RDW 12.6 % (11.5-15.5); WBC 7.5 k/uL (3.8-10.6)
[2018-11-26 16:33] LABS: Albumin 4.4 g/dL (3.80-4.90); Albumin/Globulin Ratio 2.75 (1.60-3.17); Anion Gap 8.4 mmol/L (4.00-12.00); Calcium 9.4 mg/dL (8.7-10.3); Carbon Dioxide 27.6 mmol/L (21.6-31.8); Globulin 1.6 g/dL (1.6-3.3); LDL Cholesterol,Calculated 37.8 mg/dL (0.0-131.0); Potassium 4.4 mmol/L (3.5-5.5); Total Bilirubin 0.6 mg/dL (0.3-1.2); VLDL Calculation 37.2 mg/dL (5.00-40.00)
[2018-11-26 18:47] LABS: Hemoglobin A1C 6.3 % (4.0-6.0)
== END | disposition home or self-care (01) ==
LOC: LABWHC1 07:15
PROVIDERS: ATTEND Internal Medicine
DX: E78.2 Mixed hyperlipidemia (principal); E11.9 Type 2 diabetes mellitus without complications; R53.83 Other fatigue
CPT/HCPCS: 36415; 80053; 80061; 83036; 84443; 85025

== ENCOUNTER → 2018-12-19 | Outpatient (CLI) | payer OTHER ==
[2018-12-19 10:22] LABS: Basophils # (A) 0.1 k/uL (0-0.2); Basophils % (A) 1 %; Eosinophils # (A) 0.4 k/uL (0-0.7); Eosinophils % (A) 4 %; HCT 44.2 % (39.0-53.0); HGB 14.6 gm/dL (13.0-17.5); Lymphocytes % (A) 25 %; MCH 29.5 pg (25.0-35.0); MCHC 32.9 g/dL (31.0-37.0); MCV 89.4 fL (80.0-100.0); Mean Platelet Volume 6.2; Monocytes # (A) 0.6 k/uL (0-1.0); Monocytes % (A) 7 %; Neutrophils % (A) 60 %; Platelet Count 308 k/uL (150-450); RBC 4.95 m/uL (4.30-5.90); RDW 12.5 % (11.5-15.5); WBC 8.3 k/uL (3.8-10.6)
[2018-12-19 10:34] LABS: Potassium 4.6 mmol/L (3.5-5.1)
== END | disposition home or self-care (01) ==
LOC: LABPAT 09:34
PROVIDERS: ATTEND Orthopaedic Surgery
DX: Z01.812 Encounter for preprocedural laboratory examination (principal); M23.91 Unspecified internal derangement of right knee
CPT/HCPCS: 80051; 85025

== ENCOUNTER 2018-12-27 07:39 | Day surgery (SDC) | payer OTHER ==
[2018-12-25 08:38] VITALS: BMI 31.3
--- NOTE | 2018-12-26 11:23 | HP ---
HISTORY AND PHYSICAL CHIEF COMPLAINT: Right knee pain. 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 He miss stepped after getting off the back of a truck. He notes persistent medial pain and swelling along with intermittent giving way. He has tried rest in addition to medications with only partial temporary relief. PAST MEDICAL HISTORY: Significant for asthma and hypercholesteremia. PAST SURGICAL HISTORY: Significant for hernia repair in addition of previous left knee arthroscopy. CURRENT MEDICATIONS: Lipitor. ALLERGIES: He denies drug allergies. FAMILY HISTORY: Negative. SOCIAL HISTORY: Negative for current tobacco or alcohol use. REVIEW OF SYSTEMS: Sixteen point review of systems otherwise reviewed and is noncontributory. PHYSICAL EXAMINATION: On examination, the patient is approximately 5 foot 5, 200 pounds of mesomorphic habitus. HEENT exam is nonfocal. NECK is supple. EXTREMITIES: He has painless passive motion right hip. Straight leg raise is negative. Active motion right knee -10 to 110 degrees of flexion. He has trace effusion. He is tender about the medial joint line. Collaterals are stable, Nargis's negative, Jo's elicits medial pain. His distal neurovascular appears intact in the right lower extremity. Previous x-rays to include weightbearing notch lateral and Merchant views of the right knee obtained in the office shows moderate medial compartment narrowing. MRI report 11/26/2018 of the right knee shows a posterior medial meniscal tear along with medial compartment osteoarthrosis. IMPRESSION: 1. Right knee internal derangement with symptomatic medial meniscal tear. 2. Right knee moderate medial compartment osteoarthrosis. RECOMMENDATIONS: I talked to the patient at length regarding his condition along with treatment options. At this point, he remains quite symptomatic and limited with pain and mechanical symptoms after his previous injury despite conservative measures. After thorough discussion, he opts to proceed with surgery. We will plan to proceed with arthroscopic evaluation, probable partial medial meniscectomy. We will likely perform as an outpatient procedure. Risks and benefits were discussed at length in layman's terms. MMODL / IJN: [id number] /
[~2018-12-27 07:39] MED LIST changes: -HYDROmorphone 0.5 MG/0.5 ML SYRINGE IVP PRN; +SCOPOLAMINE 1.5MG/72HR PATCH TRANSDERM ONE
[2018-12-27 07:59] VITALS: TEMP 97.1
[2018-12-27] MEDS ORDERED: LIDOCAINE 1% 20 ML VIAL (10MG/ML) FOR IV START INTRADERMA ONE (08:01)
[2018-12-27] MEDS ORDERED: PROPOFOL 10 MG/ML 20 ML VIAL IV ONE (08:39)
[2018-12-27] MEDS ORDERED: fentaNYL (PF) 50 MCG/ML 2 ML AMP ONE (08:39)
[2018-12-27] MEDS ORDERED: EPINEPHrine (PF) 1 ML in SODIUM CHLORIDE 0.9% IRRIGATIO 3,000 ML IRRIGATION ONE ×4 (08:39)
[2018-12-27] MEDS ORDERED: MIDAZOLAM 2 MG/2 ML VIAL ONE (08:39)
[2018-12-27] MEDS ORDERED: KETOROLAC 30 MG/ML 1 ML VIAL ONE (08:39)
[2018-12-27] MEDS ORDERED: LACTATED RINGERS 1,000 ML IV ONE ×2 (09:22→09:32)
--- NOTE | 2018-12-27 09:27 | P.OP ---
Date of Procedure: 12/27/18 Preoperative Diagnosis: Right knee internal derangement Postoperative Diagnosis: Right knee posterior medial meniscal tear/grade 3 chondral injury central portion distal medial femoral condyle/grade 3 chondral injury femoral trochlea Procedure(s) Performed: Right knee arthroscopic medial femoral chondrectomy/trochlear chondroplasty/partial medial meniscectomy/microfracture medial femoral condyle Anesthesia: GETA Surgeon: Christo Dee Estimated Blood Loss (ml): 10 Pathology: none sent Condition: stable Disposition: PACU Indications for Procedure: The patient's a 38-year-old male who presents with progressive right knee pain and mechanical symptoms after previous injury at work despite conservative measures. A discussion of the risks and benefits of operative intervention versus continued conservative measures was made with patient. He opted to proceed with surgery. Operative risks to include infection, neurovascular injury, development of blood clots, possible incomplete resolution of symptoms, possible worsening symptoms and need for subsequent procedures was discussed. Informed consent was obtained. Operative Findings: As below Description of Procedure: The patient was brought to the operating room, and after induction of general anesthesia examined the right knee. Collaterals were stable, Nargis was negative, and posterior drawer was negative. The right lower extremity was prepped and draped in a normal fashion. A superior lateral portal was made through a 3 mm skin incision superior and lateral to the patella. This was used for outflow. A lateral portal was made through a 5 mm vertical skin incision lateral to the patella tendon above the joint line. Diagnostic arthroscopy was performed. On inspection of the medial compartment, and oblique tear involving the posterior horn of the medial meniscus was noted in the white-white junction. This was debrided back to stable base with straight baskets and a motorized shaver. A corresponding grade 3 chondral injury was noted involving the central distal portion of the medial femoral condyle the loose chondral fragment. This to be back to stable base with a motorized shaver. The lesion measured approximately 12 x 12 mm. Microfracture was performed on the medial femoral condyle with a chondral all breeching the subchondral surface down to the bone marrow elements. On inspection of the notch, the anterior cruciate ligament appeared to be intact. On inspection of the lateral compartment no significant cartilage or meniscal pathology was noted. On inspection of the patellofemoral articulation grade 3 chondral changes were noted involving the femoral trochlea. Loose chondral fragments were debrided back to stable base with a motorized shaver.. The gutters were clear debris. The knee was then thoroughly irrigated. The portals were closed with Steri-Strips. A sterile dressing was applied in addition to a compression stocking. The patient was awoken from general anesthesia and transferred to recovery room in good condition. Blood loss was estimated at 10 mL. No complications were incurred.
[2018-12-27] MEDS: HYDROmorphone 0.5 MG/0.5 ML SYRINGE IVP PRN ×4 (09:33→10:08)
[2018-12-27] MEDS ORDERED: HYDROcodone/APAP 5-325MG 1 EACH TAB PO ONE (10:00)
[2018-12-27 10:10] VITALS: RESP 18
[2018-12-27 10:53] VITALS: BP 125/78; PULSE 67
== END 2018-12-27 11:35 | disposition home or self-care (01) ==
LOC: OR 07:39
PROVIDERS: ATTEND Orthopaedic Surgery
DX: S83.241A Other tear of medial meniscus, current injury, right knee, initial encounter (principal); S83.31XA Tear of articular cartilage of right knee, current, initial encounter; X50.1XXA Overexertion from prolonged static or awkward postures, initial encounter; E78.00 Pure hypercholesterolemia, unspecified; J45.909 Unspecified asthma, uncomplicated; Z86.73 Personal history of transient ischemic attack (TIA), and cerebral infarction without residual deficits; Z79.899 Other long term (current) drug therapy
CPT/HCPCS: 29881; 29879; J2250; J1100; J2405; J0171; J3010; J1885; J2704; J1170; J0690

== ENCOUNTER → 2019-06-18 | Outpatient (CLI) | payer OTHER ==
[2019-06-18 07:45] LABS: Basophils # (A) 0.1 k/uL (0-0.2); Basophils % (A) 1 %; Eosinophils # (A) 0.4 k/uL (0-0.7); Eosinophils % (A) 5 %; HCT 47.2 % (39.0-53.0); HGB 15.6 gm/dL (13.0-17.5); Lymphocytes # (A) 1.6 k/uL (1.0-4.8); Lymphocytes % (A) 21 %; MCH 29.8 pg (25.0-35.0); MCHC 33.1 g/dL (31.0-37.0); Monocytes # (A) 0.4 k/uL (0-1.0); Monocytes % (A) 6 %; Neutrophils # (A) 4.8 k/uL (1.3-7.7); Neutrophils % (A) 65 %; Platelet Count 358 k/uL (150-450); RBC 5.24 m/uL (4.30-5.90); RDW 12.3 % (11.5-15.5); WBC 7.3 k/uL (3.8-10.6)
[2019-06-18 12:57] LABS: Hemoglobin A1C 5.9 % (4.0-6.0)
[2019-06-18 13:16] LABS: African American GFR (CKD) 109.4 (60.0-200.0); Albumin 4.6 g/dL (3.80-4.90); Albumin/Globulin Ratio 2.3 (1.60-3.17); Calcium 9.6 mg/dL (8.7-10.3); Chol/HDL Ratio 4.84; LDL Cholesterol,Calculated 84.6 mg/dL (0.0-131.0); Potassium 4.7 mmol/L (3.5-5.5); Total Bilirubin 0.6 mg/dL (0.2-1.2); Total Protein 6.6 g/dL (6.2-8.2); VLDL Calculation 38.4 mg/dL (5.00-40.00)
== END | disposition home or self-care (01) ==
LOC: LABWHC1 07:13
PROVIDERS: ATTEND Internal Medicine
DX: E78.2 Mixed hyperlipidemia (principal); E11.9 Type 2 diabetes mellitus without complications; R53.83 Other fatigue
CPT/HCPCS: 36415; 80053; 80061; 83036; 84443; 85025

== ENCOUNTER → 2019-12-09 | Outpatient (CLI) | payer OTHER | END | disposition home or self-care (01) | LOC: LABWHC1 12:21 | PROVIDERS: ATTEND Pediatrics Pediatric Infectious Diseases | DX: Z03.818 Encounter for observation for suspected exposure to other biological agents ruled out (principal) | CPT/HCPCS: 87635 ==

== ENCOUNTER → 2019-12-26 | Outpatient (CLI) | payer OTHER | END | disposition home or self-care (01) | LOC: LABWHC1 07:24 | PROVIDERS: ATTEND Pediatrics Pediatric Infectious Diseases | DX: U07.1 COVID-19 (principal) | CPT/HCPCS: 87635 ==

== ENCOUNTER → 2020-07-21 | Outpatient (CLI) | payer OTHER ==
--- NOTE | 2020-07-21 08:48 | XR ---
EXAMINATION TYPE: XR calcaneus 2V RT DATE OF EXAM: 07/21/2020 COMPARISON: NONE HISTORY: Pain for a couple weeks. TECHNIQUE: 2 views calcaneus. FINDINGS: Small inferior calcaneal spur. Small spur superior posterior calcaneus at the distal Achill es tendon insertion. No acute fracture or dislocation is seen. Bohler's angle is maintained. The over lying Soft tissue is unremarkable. IMPRESSION: As above.
== END | disposition home or self-care (01) ==
LOC: RADXRMAIN 08:22
PROVIDERS: ATTEND Internal Medicine
DX: M77.31 Calcaneal spur, right foot (principal)

== ENCOUNTER → 2020-10-29 | Outpatient (CLI) | payer OTHER ==
[2020-10-30 01:05] LABS: Basophils # (A) 0.04 X 10*3/uL (0.00-0.10); Basophils % (A) 0.5 %; Eosinophils # (A) 0.26 X 10*3/uL (0.04-0.35); Eosinophils % (A) 3.5 %; HCT 44.9 % (39.6-50.0); HGB 14.3 g/dL (13.0-17.0); Lymphocytes # (A) 1.98 X 10*3/uL (0.90-5.00); Lymphocytes % (A) 26.6 %; MCH 29.9 pg (27.0-32.0); MCHC 31.8 g/dL (32.0-37.0); MCV 93.9 fL (80.0-97.0); Mean Platelet Volume 9.8 fL (9.5-12.2); Monocytes # (A) 0.63 X 10*3/uL (0.20-1.00); Monocytes % (A) 8.5 %; Neutrophils # (A) 4.48 X 10*3/uL (1.80-7.70); Neutrophils % (A) 60.4 %; Platelet Count 382 X 10*3/uL (140-440); RBC 4.78 X 10*6/uL (4.40-5.60); RDW 12.3 % (11.5-14.5); WBC 7.43 X 10*3/uL (4.50-10.00)
[2020-10-30 01:09] LABS: ALT 47 U/L (10-49); AST 31 U/L (14-35); African American GFR (CKD) 108.6 (60.0-200.0); Alkaline Phosphatase 89 U/L (41-126); C Reactive Protein <0.4 mg/dL (0.0-0.8); Carbon Dioxide 28.3 mmol/L (21.6-31.8); Chloride 104 mmol/L (96-109); Globulin 1.8 g/dL (1.6-3.3); Glucose 176 mg/dL (70-110); Non-African American GFR(CKD) 93.7 (60.0-200.0); Potassium 4.5 mmol/L (3.5-5.5); Sodium 141 mmol/L (135-145); Total Bilirubin 0.5 mg/dL (0.3-1.2); Total Protein 6.3 g/dL (6.2-8.2)
[2020-10-30 04:00] LABS: Hepatitis A Ab, Total Reactive (Non-Reactive); Hepatitis B Surface AB- Quant 13.9 mIU/mL; Hepatitis B Surface Antibody Reactive (Non-Reactive); Hepatitis B Surface Antigen Non-Reactive (Non-Reactive)
== END | disposition home or self-care (01) ==
LOC: LABWHC1 15:00
PROVIDERS: ATTEND Internal Medicine
DX: K51.50 Left sided colitis without complications (principal)
CPT/HCPCS: 36415; 80053; 82542; 82657; 85025; 86140; 86480; 86704; 86706; 86708; 87340

== ENCOUNTER 2022-08-12 18:59 | Emergency (ER) | payer OTHER ==
--- NOTE | 2022-08-12 19:10 | ED ---
General Adult HPI - General Source: RN notes reviewed <Amirah Victoria - Last Filed: 08/12/22 19:11> <Akash Izquierdo - Last Filed: 08/13/22 22:52> - General Stated complaint: food stuck in throat - History of Present Illness Initial comments: 42 year old male presents to the emergency department for throat problem. He was eating dinner and ate a piece of ham and feels like it is stuck in his throat. He has vomited 7 times without relief. He also reports trying to drink water and drinking soda to help remove the food. He denies shortness of breath, drooling, cough, dyspnea, hematemesis. (Amirah Victoria) This is a 48-year-old male with a past medical history including GERD presents emergency department for a foreign body sensation in his throat. The patient stated he was eating habits dinner when he did swallow this and it felt like it got stuck. The patient stated that he was unable to tolerate his saliva and any liquids in the waiting room and prior to my evaluation. When I evaluated the patient, the patient stated that he felt as if the ham was moving lower down and stated that is now in the center of his chest and no longer in his throat. The patient was not nauseous and was able to tolerate his own saliva on my evaluation. The patient denied any other acute pain or complaints at this time. The patient did state that this is happened in the past but he has never needed to be scoped. (Akash Izquierdo) - Related Data Home Medications Medication Instructions Recorded Confirmed No Known Home Medications 08/12/22 08/12/22 Allergies Allergy/AdvReac Type Severity Reaction Status Date / Time cashew nut Allergy Swelling Verified 08/12/22 22:07 Iodinated Contrast Media Allergy Nausea & Verified 08/12/22 22:07 [Iodinated Contrast Media - Vomiting & IV Dye] Diarrhea Review of Systems ROS Other: All systems not noted in ROS Statement are negative. <Amirah Victoria - Last Filed: 08/12/22 19:11> ROS Other: All systems not noted in ROS Statement are negative. <Akash Izquierdo - Last Filed: 08/13/22 22:52> ROS Statement: Those systems with pertinent positive or pertinent negative responses have been documented in the HPI. Past Medical History Past Medical History: Asthma, Chest Pain / Angina, CVA/TIA, Diabetes Mellitus, Musculoskeletal Disorder Additional Past Medical History / Comment(s): COLITIS, pain lower back and feet Diet controlled diabetic History of Any Multi-Drug Resistant Organisms: None Reported Past Surgical History: Appendectomy, Hernia Repair Additional Past Surgical History / Comment(s): Cassius ing. hernia repair x2 each side. BACK INJECTIONS. Past Anesthesia/Blood Transfusion Reactions: Previous Problems w/ Anesthesia Additional Past Anesthesia/Blood Transfusion Reaction / Comment(s): slow to wake up Smoking Status: Never smoker - Past Family History Father Family Medical History: CVA/TIA, Diabetes Mellitus, Hypertension Additional Family Medical History / Comment(s): 11 strokes Mother Family Medical History: Cancer, Diabetes Mellitus, Hypertension Additional Family Medical History / Comment(s): CA. <Amirah Victoria - Last Filed: 08/12/22 19:11> General Exam Limitations: no limitations General appearance: alert, in no apparent distress Head exam: Present: atraumatic, normocephalic, normal inspection Eye exam: Present: normal appearance, PERRL Pupils: Present: normal accommodation ENT exam: Present: normal exam, normal oropharynx, mucous membranes moist Neck exam: Present: normal inspection, full ROM Respiratory exam: Present: normal lung sounds bilaterally Cardiovascular Exam: Present: regular rate, normal rhythm, normal heart sounds GI/Abdominal exam: Present: soft, normal bowel sounds Extremities exam: Present: normal inspection, full ROM Back exam: Present: normal inspection, full ROM Neurological exam: Present: alert, oriented X3, CN II-XII intact Psychiatric exam: Present: normal affect, normal mood Skin exam: Present: warm, dry <Akash Izquierdo - Last Filed: 08/13/22 22:52> Course Vital Signs 08/12/22 08/12/22 19:09 22:09 Temperature 97 F L 97.7 F Pulse Rate 64 74 Respiratory 16 17 Rate Blood Pressure 188/115 144/100 O2 Sat by Pulse 100 97 Oximetry Medical Decision Making <Akash Izquierdo - Last Filed: 08/13/22 22:52> - Medical Decision Making Was pt. sent in by a medical professional or institution (, PA, ONLINE MARKETER, urgent care, hospital, or care home...) When possible be specific @ -No Did you speak to anyone other than the patient for history (EMS, parent, family, police, friend...)? What history was obtained from this source @ -No Did you review nursing and triage notes (agree or disagree)? Why? @ -I reviewed and agree with nursing and triage notes Were old charts reviewed (outside hosp., previous admission, EMS record, old EKG, old radiological studies, urgent care reports/EKG's, care home records)? Report findings @ -No old charts were reviewed Differential Diagnosis (chest pain, altered mental status, abdominal pain women, abdominal pain men, vaginal bleeding, weakness, fever, dyspnea, syncope, headache, dizziness, GI bleed, back pain, seizure, CVA, palpatations, mental health)? @ -Food impaction EKG interpreted by me (3pts min.). @ -As above X-rays interpreted by me (1pt min.). @ -None done CT interpreted by me (1pt min.). @ -None done U/S interpreted by me (1pt. min.). @ -None done What testing was considered but not performed or refused? (CT, X-rays, U/S, labs)? Why? @ -None What meds were considered but not given or refused? Why? @ -None Did you discuss the management of the patient with other professionals (professionals i.e. , PA, ONLINE MARKETER, lab, RT, psych nurse, psychosocial rehabilitation counselor, mine foreman, teacher, chief contract officer, case consultant)? Give summary @ -No Was smoking cessation discussed for >3mins.? @ -Yes Was critical care preformed (if so, how long)? @ -No Were there social determinants of health that impacted care today? How? (Homelessness, low income, unemployed, alcoholism, drug addiction, transportation, low edu. Level, literacy, decrease access to med. care, retirement, rehab)? @ -No Was there de-escalation of care discussed even if they declined (Discuss DNR or withdrawal of care, Hospice)? DNR status @ -No What co-morbidities impacted this encounter? (DM, HTN, Smoking, COPD, CAD, Cancer, CVA, ARF, Chemo, Hep., AIDS, mental health diagnosis, sleep apnea, morbid obesity)? @ -None Was patient admitted / discharged? Hospital course, mention meds given and route, prescriptions, significant lab abnormalities, going to OR and other pertinent info. @ -Was seen and evaluated emergency department. On physical exam, the patient was resting in bed. When I went to evaluate the patient, the patient was resting in bed and felt that the food was was moving. The patient was able to tolerate soda on evaluation and was able to stand up and felt as if food impaction was no longer there. The patient was monitored observed in the emergency department and continued to drink the entire bottle of soda and had no spitting up episodes and felt as if he was back to his baseline. No further intervention was required at this time. The patient was discharged home in stable condition. Undiagnosed new problem with uncertain prognosis? @ -No Drug Therapy requiring intensive monitoring for toxicity (Heparin, Nitro, Insulin, Cardizem)? @ -No Were any procedures done? @ -No Diagnosis/symptom? @ -Food bolus impaction, resolved Acute, or Chronic, or Acute on Chronic? @ -Acute Uncomplicated (without systemic symptoms) or Complicated (systemic symptoms)? @ -Uncomplicated Side effects of treatment? @ -No Exacerbation, Progression, or Severe Exacerbation? @ -No Poses a threat to life or bodily function? How? (Chest pain, [place], [place], pneumonia, PE, COPD, DKA, ARF, appy, cholecystitis, CVA, Diverticulitis, Homicidal, Suicidal, threat to staff... and all critical care pts) @ -No (Akash Izquierdo) Disposition <Amirah Victoria - Last Filed: 08/12/22 19:11> Is patient prescribed a controlled substance at d/c from ED?: No Time of Disposition: 22:00 <Akash Izquierdo - Last Filed: 08/13/22 22:52> Clinical Impression: Food impaction of esophagus Disposition: HOME SELF-CARE Condition: Stable Instructions (If sedation given, give patient instructions): Food Impaction (ED) Referrals: Bonnie Wells MD [Primary Care Provider] - 1-2 days
--- NOTE | 2022-08-12 19:56 | XR ---
EXAMINATION TYPE: XR soft tissue neck DATE OF EXAM: 08/12/2022 COMPARISON: NONE HISTORY: Foreign body in the throat TECHNIQUE: 2 views FINDINGS: Epiglottis is normal. Subglottic trachea appears normal. Tonsils and adenoids appear normal . Prevertebral soft tissues appear normal. No evidence of radiopaque foreign body in the neck. Cervic al vertebra have normal spacing and alignment. IMPRESSION: No evidence of cervical foreign body. No acute abnormality of the cervical soft tissues.
[2022-08-12 22:09] VITALS: BP 144/100; PULSE 74; RESP 17; TEMP 97.7
== END 2022-08-12 22:14 | disposition home or self-care (01) ==
LOC: EC 18:59
DX: T18.128A Food in esophagus causing other injury, initial encounter (principal); J45.909 Unspecified asthma, uncomplicated; I63.9 Cerebral infarction, unspecified; E11.9 Type 2 diabetes mellitus without complications; Z91.041 Radiographic dye allergy status; Z91.018 Allergy to other foods
CPT/HCPCS: 70360; 99284

== ENCOUNTER → 2023-02-10 | Outpatient (CLI) | payer OTHER ==
[2023-02-10 23:16] LABS: Basophils # (A) 0.05 X 10*3/uL (0.00-0.10); Basophils % (A) 0.7 %; Eosinophils # (A) 0.39 X 10*3/uL (0.04-0.35); Eosinophils % (A) 5.3 %; HCT 43.8 % (39.6-50.0); HGB 14.4 d/dL (12.0-15.0); Lymphocytes % (A) 20.2 %; MCH 30.2 pg (27.0-32.0); MCHC 32.9 d/dL (32.0-37.0); MCV 91.8 FL (80.0-97.0); Mean Platelet Volume 9.6 FL (9.5-12.2); Monocytes # (A) 0.49 X 10*3/uL (0.20-1.00); Monocytes % (A) 6.6 %; NRBC Per 100 WBC 0 X 10*3/uL (0.00-0.01); Neutrophils # (A) 4.94 X 10*3/uL (1.80-7.70); Neutrophils % (A) 66.5 %; Platelet Count 311 X 10*3/uL (140-440); RBC 4.77 X 10*6/uL (4.40-5.60); RDW 11.8 % (11.5-14.5); WBC 7.42 X 10*3/uL (4.50-10.00)
[2023-02-10 23:32] LABS: Erythrocyte Sedimentation Rate 4 mm/Hr (0-15)
[2023-02-10 23:38] LABS: Albumin 4.3 d/dL (3.8-4.9); Protein, Total 6.4 d/dL (6.2-8.2)
[2023-02-11 00:06] LABS: % Iron Saturation 30.63 (15.00-50.00); ALT 62 U/L (10-49); AST 39 U/L (14-35); Albumin 4.2 d/dL (3.8-4.9); Alkaline Phosphatase 86 U/L (41-126); BUN/Creat Ratio 16.11 Ratio (12.00-20.00); Blood Urea Nitrogen 14.5 mg/dL (9.0-27.0); Calcium 9.3 mg/dL (8.7-10.3); Carbon Dioxide 24.6 mmol/L (21.6-31.8); Chloride 100 mmol/L (96-109); Chol/HDL Ratio 5.62 Ratio; Globulin 2.1 d/dL (1.6-3.3); Glucose 224 mg/dL (70-110); Iron 136 UG/DL (65-175); Potassium 4.3 mmol/L (3.5-5.5); Sodium 137 mmol/L (135-145); Total Bilirubin 0.5 mg/dL (0.3-1.2); Total Iron Binding Capacity 444 UG/DL (228-460); Total Protein 6.3 d/dL (6.2-8.2)
[2023-02-11 06:47] LABS: Hepatitis A Antibody IgM Nonreactive
[2023-02-12 12:49] LABS: Hepatitis A Ab, Total REACTIVE
[2023-02-12 15:04] LABS: C-ANCA <1:20 Titer (<1:20)
== END | disposition home or self-care (01) ==
LOC: LABWHC1 10:00
PROVIDERS: ATTEND Family Medicine
DX: B15.9 Hepatitis A without hepatic coma (principal); M13.0 Polyarthritis, unspecified; K52.9 Noninfective gastroenteritis and colitis, unspecified; K92.2 Gastrointestinal hemorrhage, unspecified; E78.2 Mixed hyperlipidemia; N40.0 Benign prostatic hyperplasia without lower urinary tract symptoms; E55.9 Vitamin D deficiency, unspecified; E53.8 Deficiency of other specified B group vitamins; R73.9 Hyperglycemia, unspecified
CPT/HCPCS: 36415; 80053; 80061; 82306; 82607; 83036; 83540; 83550; 84153; 84165; 84443; 84550; 85025; 85652; 86038; 86140; 86255; 86618; 86708; 86709

== ENCOUNTER 2023-03-08 00:39 | Emergency (ER) | payer OTHER ==
[2023-03-08 01:22] VITALS: RESP 16
[2023-03-08 03:20] LABS: Basophils # (A) 0.1 k/uL (0-0.2); Basophils % (A) 0 %; Eosinophils # (A) 0.4 k/uL (0-0.7); Eosinophils % (A) 3 %; HCT 44.3 % (39.0-53.0); HGB 15.1 gm/dL (13.0-17.5); Lymphocytes # (A) 1.6 k/uL (1.0-4.8); Lymphocytes % (A) 11 %; MCH 30.8 pg (25.0-35.0); MCV 90.5 fL (80.0-100.0); Monocytes # (A) 0.9 k/uL (0-1.0); Monocytes % (A) 6 %; Neutrophils # (A) 11.5 k/uL (1.3-7.7); Neutrophils % (A) 79 %; Platelet Count 314 k/uL (150-450); RDW 12.3 % (11.5-15.5); WBC 14.6 k/uL (3.8-10.6)
[2023-03-08 03:43] LABS: ALT 48 U/L (4-49); AST 34 U/L (17-59); African American GFR (CKD) >90 (>60 ml/min/1.73 sqM); Albumin 4.4 g/dL (3.5-5.0); Alkaline Phosphatase 107 U/L (38-126); Anion Gap 8 mmol/L; Blood Urea Nitrogen 15 mg/dL (9-20); Calcium 9.3 mg/dL (8.4-10.2); Carbon Dioxide 25 mmol/L (22-30); Chloride 102 mmol/L (98-107); Glucose 177 mg/dL (74-99); Non-African American GFR(CKD) >90 (>60 ml/min/1.73 sqM); Potassium 4.4 mmol/L (3.5-5.1); Sodium 135 mmol/L (137-145); Total Bilirubin 0.7 mg/dL (0.2-1.3); Total Protein 7.4 g/dL (6.3-8.2)
--- NOTE | 2023-03-08 07:20 | CT ---
EXAMINATION TYPE: CT brain wo con DATE OF EXAM: 03/08/2023 COMPARISON: None HISTORY: 42-year-old male headache with left-sided visual loss TECHNIQUE: Examination was done in axial plane without intravenous contrast. Coronal and sagittal r econstructions performed. CT DLP: 1100.4 mGycm Automated exposure control for dose reduction was used. FINDINGS: There is no evidence of acute intracranial hemorrhage, acute ischemic changes, mass, mass-effect, or extra-axial fluid collection. There is no effacement of cerebral sulci or basal subarachnoid cister ns. There is no hydrocephalus. There is no midline shift. Paz-white matter distinction is preserv ed. Complete opacification of the right maxillary sinus. Bilateral jacob bullosa. Mild mucosal thickenin g ethmoid air cells. Mastoid air cells well pneumatized. Orbits and globes are intact. IMPRESSION: No acute intracranial abnormality seen. Mild chronic ethmoid sinus disease. Complete opacification of the right maxillary sinus. If symptomatic sinus disease, consider outpatient ENT referral.
[2023-03-08 07:23] VITALS: BP 135/82; PULSE 61; TEMP 97.7
[2023-03-08] MEDS ORDERED: BUTALB/APAP/CAFF 50-325-40MG TAB PO STA (07:37)
--- NOTE | 2023-03-08 07:39 | ED ---
Headache HPI - General Chief Complaint: Headache Stated Complaint: Headache,Dizziness Time Seen by Provider: 03/08/23 01:20 Mode of arrival: wheelchair Limitations: no limitations - History of Present Illness Initial Comments: 42-year-old male presents to the emergency department reporting headache. Pain started after he got home from work. He was reporting to photophobia. Pain was located behind his left eye. He did have some blurred vision in that globe. States that his symptoms only lasted for a couple of hours and have resolved entirely at this time. He denies any fevers. No head trauma. No neck stiffness. No unilateral numbness or weakness. No history of stroke. No other alleviating, precipitating or modifying factors - Related Data Home Medications Medication Instructions Recorded Confirmed Acetaminophen Tab [Tylenol Tab] 1,000 mg PO BID 03/08/23 03/08/23 Allergy/Sinus Otc (Unknown) 1 tab PO DAILY 03/08/23 03/08/23 lisinopriL [Zestril] 10 mg PO DAILY 03/08/23 03/08/23 Allergies Allergy/AdvReac Type Severity Reaction Status Date / Time cashew nut Allergy Swelling Verified 03/08/23 07:42 Iodinated Contrast Media Allergy Nausea & Verified 03/08/23 07:42 [Iodinated Contrast Media - Vomiting & IV Dye] Diarrhea Review of Systems ROS Statement: Those systems with pertinent positive or pertinent negative responses have been documented in the HPI. ROS Other: All systems not noted in ROS Statement are negative. Past Medical History Past Medical History: Asthma, Chest Pain / Angina, CVA/TIA, Diabetes Mellitus, Hypertension, Musculoskeletal Disorder Additional Past Medical History / Comment(s): COLITIS, pain lower back and feet Diet controlled diabetic History of Any Multi-Drug Resistant Organisms: None Reported Past Surgical History: Appendectomy, Hernia Repair Additional Past Surgical History / Comment(s): Cassius ing. hernia repair x2 each side. BACK INJECTIONS. Past Anesthesia/Blood Transfusion Reactions: Previous Problems w/ Anesthesia Additional Past Anesthesia/Blood Transfusion Reaction / Comment(s): slow to wake up Past Psychological History: No Psychological Hx Reported Smoking Status: Never smoker Past Alcohol Use History: None Reported Past Drug Use History: None Reported - Past Family History Father Family Medical History: CVA/TIA, Diabetes Mellitus, Hypertension Additional Family Medical History / Comment(s): 11 strokes Mother Family Medical History: Cancer, Diabetes Mellitus, Hypertension Additional Family Medical History / Comment(s): [place]. General Exam Limitations: no limitations General appearance: alert, in no apparent distress Head exam: Present: atraumatic, normocephalic, normal inspection Eye exam: Present: normal appearance, PERRL, EOMI. Absent: scleral icterus, conjunctival injection, periorbital swelling ENT exam: Present: normal exam, mucous membranes moist Neck exam: Present: normal inspection. Absent: tenderness, meningismus, lymphadenopathy Respiratory exam: Present: normal lung sounds bilaterally. Absent: respiratory distress, wheezes, rales, rhonchi, stridor Cardiovascular Exam: Present: regular rate, normal rhythm, normal heart sounds. Absent: systolic murmur, diastolic murmur, rubs, gallop, clicks GI/Abdominal exam: Present: soft, normal bowel sounds. Absent: distended, tenderness, guarding, rebound, rigid Extremities exam: Present: normal inspection, full ROM, normal capillary refill. Absent: tenderness, pedal edema, joint swelling, calf tenderness Back exam: Present: normal inspection Neurological exam: Present: alert, oriented X3, CN II-XII intact Psychiatric exam: Present: normal affect, normal mood Skin exam: Present: warm, dry, intact, normal color. Absent: rash Course Vital Signs 03/08/23 03/08/23 01:19 07:21 Temperature 98 F 97.7 F Pulse Rate 78 61 Respiratory 16 16 Rate Blood Pressure 145/89 135/82 O2 Sat by Pulse 98 97 Oximetry Medical Decision Making - Medical Decision Making Was pt. sent in by a medical professional or institution (, PA, NEEDLE PROCESS FELT GOODS SUPERVISOR, urgent care, hospital, or custodial...) When possible be specific @ -No Did you speak to anyone other than the patient for history (EMS, parent, family, police, friend...)? What history was obtained from this source @ -I spoke with the patient's Did you review nursing and triage notes (agree or disagree)? Why? @ -I reviewed and agree with nursing and triage notes Were old charts reviewed (outside hosp., previous admission, EMS record, old EKG, old radiological studies, urgent care reports/EKG's, custodial records)? Report findings @ -No old charts were reviewed Differential Diagnosis (chest pain, altered mental status, abdominal pain women, abdominal pain men, vaginal bleeding, weakness, fever, dyspnea, syncope, headache, dizziness, GI bleed, back pain, seizure, CVA, palpatations, mental health, musculoskeletal)? @ -Differential Headache: Migraine, tension, cluster, carbon monoxide, central venous thrombosis, pension karma temporal arteritis, acute closure glaucoma, intercranial hemorrhage, mastoiditis, sinusitis, head injury, this is not meant to be an all-inclusive list. EKG interpreted by me (3pts min.). @ Not completed X-rays interpreted by me (1pt min.). @ -None done CT interpreted by me (1pt min.). @ Yes and demonstrates no acute intracranial process U/S interpreted by me (1pt. min.). @ -None done What testing was considered but not performed or refused? (CT, X-rays, U/S, labs)? Why? @ -None What meds were considered but not given or refused? Why? @ -None Did you discuss the management of the patient with other professionals (professionals i.e. , PA, NEEDLE PROCESS FELT GOODS SUPERVISOR, lab, RT, psych nurse, manager social work, battery filler, teacher, security officer supervisor, pillowcase sewer)? Give summary @ -No Was smoking cessation discussed for >3mins.? @ -No Was critical care preformed (if so, how long)? @ -No Were there social determinants of health that impacted care today? How? (Home lessness, low income, unemployed, alcoholism, drug addiction, transportation, low edu. Level, literacy, decrease access to med. care, long term, rehab)? @ -No Was there de-escalation of care discussed even if they declined (Discuss DNR or withdrawal of care, Hospice)? DNR status @ -No What co-morbidities impacted this encounter? (DM, HTN, Smoking, COPD, CAD, Cancer, CVA, ARF, Chemo, Hep., AIDS, mental health diagnosis, sleep apnea, morbid obesity)? @ -None Was patient admitted / discharged? Hospital course, mention meds given and route, prescriptions, significant lab abnormalities, going to OR and other pertinent info. @ -Upon arrival patient was placed into room 14. A thorough history and physical exam was performed. His symptoms are almost entirely improved at this time however he is requesting evaluation. IV is established laboratory studies were conducted. Patient was given a Fioricet for his headache. He is sent for CT due to his reported visual loss. No acute findings at this time. Patient will be discharged home. Needs to follow-up with his primary care doctor for further evaluation of his symptoms and return for any new or worsening symptoms. Undiagnosed new problem with uncertain prognosis? @ -Yes Drug Therapy requiring intensive monitoring for toxicity (Heparin, Nitro, Insulin, Cardizem)? @ -No Were any procedures done? @ -No Diagnosis/symptom? @ -Acute cephalgia, acute visual disturbance Acute, or Chronic, or Acute on Chronic? @ Acute Uncomplicated (without systemic symptoms) or Complicated (systemic symptoms)? @ -Complicated Side effects of treatment? @ -No Exacerbation, Progression, or Severe Exacerbation? @ -No Poses a threat to life or bodily function? How? (Chest pain, [place], [place], pneumonia, PE, COPD, DKA, ARF, appy, cholecystitis, CVA, Diverticulitis, Homicidal, Suicidal, threat to staff... and all critical care pts) @ -No - Lab Data Result diagrams: 03/08/23 03:12 03/08/23 03:12 Lab Results 03/08/23 03/08/23 03/08/23 Range/Units 03:12 03:12 03:12 WBC 14.6 H (3.8-10.6) k/uL RBC 4.90 (4.30-5.90) m/uL Hgb 15.1 (13.0-17.5) gm/dL Hct 44.3 (39.0-53.0) % MCV 90.5 (80.0-100.0) fL MCH 30.8 (25.0-35.0) pg MCHC 34.0 (31.0-37.0) g/dL RDW 12.3 (11.5-15.5) % Plt Count 314 (150-450) k/uL MPV 7.0 Neutrophils % 79 % Lymphocytes % 11 % Monocytes % 6 % Eosinophils % 3 % Basophils % 0 % Neutrophils # 11.5 H (1.3-7.7) k/uL Lymphocytes # 1.6 (1.0-4.8) k/uL Monocytes # 0.9 (0-1.0) k/uL Eosinophils # 0.4 (0-0.7) k/uL Basophils # 0.1 (0-0.2) k/uL ESR 10 (0-15) mm/hr Sodium 135 L (137-145) mmol/L Potassium 4.4 (3.5-5.1) mmol/L Chloride 102 (98-107) mmol/L Carbon Dioxide 25 (22-30) mmol/L Anion Gap 8 mmol/L BUN 15 (9-20) mg/dL Creatinine 0.86 (0.66-1.25) mg/dL Est GFR (CKD-EPI)AfAm >90 (>60 ml/min/1.73 sqM) Est GFR (CKD-EPI)NonAf >90 (>60 ml/min/1.73 sqM) Glucose 177 H (74-99) mg/dL Calcium 9.3 (8.4-10.2) mg/dL Total Bilirubin 0.7 (0.2-1.3) mg/dL AST 34 (17-59) U/L ALT 48 (4-49) U/L Alkaline Phosphatase 107 (38-126) U/L Total Protein 7.4 (6.3-8.2) g/dL Albumin 4.4 (3.5-5.0) g/dL Disposition Clinical Impression: Headache Disposition: HOME SELF-CARE Condition: Stable Instructions (If sedation given, give patient instructions): Acute Headache (ED) Additional Instructions: Please follow up with your primary care doctor in regards to your symptoms and return for any new or worsening symptoms Is patient prescribed a controlled substance at d/c from ED?: No Referrals: Aye Law MD [Primary Care Provider] - 1-2 days Time of Disposition: 07:39
== END 2023-03-08 08:01 | disposition home or self-care (01) ==
LOC: EC 00:39
DX: J32.2 Chronic ethmoidal sinusitis (principal); J45.909 Unspecified asthma, uncomplicated; E11.9 Type 2 diabetes mellitus without complications; I10 Essential (primary) hypertension; Z79.899 Other long term (current) drug therapy; Z91.041 Radiographic dye allergy status; Z91.018 Allergy to other foods
CPT/HCPCS: 36415; 70450; 80053; 85025; 85652; 99284

== ENCOUNTER → 2023-08-10 | Outpatient (CLI) | payer OTHER ==
[2023-08-10 16:20] LABS: Basophils # (A) 0.05 X 10*3/uL (0.00-0.10); Basophils % (A) 0.6 %; Eosinophils # (A) 0.39 X 10*3/uL (0.04-0.35); Eosinophils % (A) 4.3 %; HCT 44.3 % (39.6-50.0); HGB 14.8 g/dL (13.0-17.0); Lymphocytes # (A) 1.92 X 10*3/uL (0.90-5.00); Lymphocytes % (A) 21.2 %; MCH 30.3 pg (27.0-32.0); MCHC 33.4 g/dL (32.0-37.0); MCV 90.8 FL (80.0-97.0); Mean Platelet Volume 9.5 FL (9.5-12.2); Monocytes # (A) 0.77 X 10*3/uL (0.20-1.00); Monocytes % (A) 8.5 %; NRBC Per 100 WBC 0 X 10*3/uL (0.00-0.01); Neutrophils # (A) 5.85 X 10*3/uL (1.80-7.70); Neutrophils % (A) 64.7 %; Platelet Count 317 X 10*3/uL (140-440); RBC 4.88 X 10*6/uL (4.40-5.60); RDW 11.7 % (11.5-14.5); WBC 9.04 X 10*3/uL (4.50-10.00)
[2023-08-10 16:30] LABS: ALT 57 U/L (10-49); AST 35 U/L (14-35); Albumin 4.4 g/dL (3.8-4.9); Albumin/Globulin Ratio 1.91 Ratio (1.60-3.17); Alkaline Phosphatase 90 U/L (41-126); BUN/Creat Ratio 13.89 Ratio (12.00-20.00); Blood Urea Nitrogen 12.5 mg/dL (9.0-27.0); Calcium 9.9 mg/dL (8.7-10.3); Chloride 102 mmol/L (96-109); Chol/HDL Ratio 5.22 Ratio; Globulin 2.3 g/dL (1.6-3.3); Glucose 121 mg/dL (70-110); LDL Cholesterol,Calculated 69.6 mg/dL (0.0-131.0); Potassium 4.6 mmol/L (3.5-5.5); Sodium 139 mmol/L (135-145); Total Bilirubin 0.5 mg/dL (0.3-1.2); Total Protein 6.7 g/dL (6.2-8.2)
[2023-08-10 16:31] LABS: T4, Free (Free Thyroxine) 1.12 ng/dL (0.80-1.80)
== END | disposition home or self-care (01) ==
LOC: LABWHC1 09:50
PROVIDERS: ATTEND Family Medicine
DX: E11.65 Type 2 diabetes mellitus with hyperglycemia (principal); K92.2 Gastrointestinal hemorrhage, unspecified; E78.2 Mixed hyperlipidemia
CPT/HCPCS: 36415; 80053; 80061; 83036; 84439; 84443; 85025

== ENCOUNTER 2023-08-31 18:06 | Emergency (ER) | payer OTHER ==
[2023-08-31 18:28] VITALS: RESP 16; TEMP 98.6
[2023-08-31] MEDS ORDERED: KETOROLAC 15 MG/ML 1 ML VIAL IM STA (18:36)
[2023-08-31] MEDS ORDERED: ORPHENADRINE 30 MG/ML 2 ML VIAL IM STA (18:36)
--- NOTE | 2023-08-31 18:40 | ED ---
Extremity Problem HPI - General Chief complaint: Extremity Problem,Nontraumatic Stated complaint: R Leg Pain Time Seen by Provider: 08/31/23 18:28 Source: patient Mode of arrival: ambulatory Limitations: no limitations - History of Present Illness Initial comments: 43-year-old male presenting with chief complaint of right lower leg pain. Pain has been ongoing for about 2 weeks, however the last 2 days the pain has worsened. Patient has had no known injury or trauma. He states that the pain is concentrated at the lateral portion of the lower leg as well as the top of the foot. This is a throbbing pain that worsens with weightbearing and ambulation. No swelling noted. No numbness or tingling. Blood thinners. No history of blood clot, recent surgery, long travel, chest pain, difficulty breathing, hormone use. Patient does have a history of skin cancer which required no chemotherapy or further management after removal. - Related Data Home Medications Medication Instructions Recorded Confirmed Acetaminophen Tab [Tylenol Tab] 1,000 mg PO BID 03/08/23 03/08/23 Allergy/Sinus Otc (Unknown) 1 tab PO DAILY 03/08/23 03/08/23 lisinopriL [Zestril] 10 mg PO DAILY 03/08/23 03/08/23 Allergies Allergy/AdvReac Type Severity Reaction Status Date / Time cashew nut Allergy Swelling Verified 08/31/23 18:27 Iodinated Contrast Media Allergy Nausea & Verified 08/31/23 18:27 [Iodinated Contrast Media - Vomiting & IV Dye] Diarrhea Review of Systems ROS Statement: Those systems with pertinent positive or pertinent negative responses have been documented in the HPI. ROS Other: All systems not noted in ROS Statement are negative. Past Medical History Past Medical History: Asthma, Chest Pain / Angina, CVA/TIA, Diabetes Mellitus, Hypertension, Musculoskeletal Disorder Additional Past Medical History / Comment(s): COLITIS, pain lower back and feet Diet controlled diabetic History of Any Multi-Drug Resistant Organisms: None Reported Past Surgical History: Appendectomy, Hernia Repair Additional Past Surgical History / Comment(s): Cassius ing. hernia repair x2 each side. BACK INJECTIONS. Past Anesthesia/Blood Transfusion Reactions: Previous Problems w/ Anesthesia Additional Past Anesthesia/Blood Transfusion Reaction / Comment(s): slow to wake up Past Psychological History: No Psychological Hx Reported Smoking Status: Never smoker Past Alcohol Use History: None Reported Past Drug Use History: None Reported - Past Family History Father Family Medical History: CVA/TIA, Diabetes Mellitus, Hypertension Additional Family Medical History / Comment(s): 11 strokes Mother Family Medical History: Cancer, Diabetes Mellitus, Hypertension Additional Family Medical History / Comment(s): CA. General Exam Limitations: no limitations General appearance: alert, in no apparent distress Head exam: Present: atraumatic, normocephalic Eye exam: Present: normal appearance, EOMI Neck exam: Present: normal inspection Respiratory exam: Present: normal lung sounds bilaterally. Absent: respiratory distress, wheezes, rales, rhonchi, stridor Cardiovascular Exam: Present: regular rate, normal rhythm, normal heart sounds. Absent: systolic murmur, diastolic murmur, rubs, gallop, clicks Extremities exam: Present: normal inspection, full ROM, tenderness (Right lower leg tenderness), normal capillary refill. Absent: pedal edema Neurological exam: Present: alert, oriented X3 Psychiatric exam: Present: normal affect, normal mood Skin exam: Present: warm, dry Course Vital Signs 08/31/23 08/31/23 18:16 20:02 Temperature 98.6 F Pulse Rate 67 61 Respiratory 16 16 Rate Blood Pressure 143/88 141/101 O2 Sat by Pulse 98 96 Oximetry Medical Decision Making - Medical Decision Making Was pt. sent in by a medical professional or institution (ATUL Medeiros, PUBLIC INFORMATION COORDINATOR, urgent care, hospital, or longterm...) When possible be specific @ -No Did you speak to anyone other than the patient for history (EMS, parent, family, police, friend...)? What history was obtained from this source @ -No Did you review nursing and triage notes (agree or disagree)? Why? @ -I reviewed and agree with nursing and triage notes Were old charts reviewed (outside hosp., previous admission, EMS record, old EKG, old radiological studies, urgent care reports/EKG's, longterm records)? Report findings @ -No old charts were reviewed Differential Diagnosis (chest pain, altered mental status, abdominal pain women, abdominal pain men, vaginal bleeding, weakness, fever, dyspnea, syncope, headache, dizziness, GI bleed, back pain, seizure, CVA, palpatations, mental health, musculoskeletal)? @ -Differential Musculoskeletal Muscular strain, contusion, ligament sprain, fracture, arthritis, septic arthritis, bursitis, cellulitis, muscle spasm, nerve compression, DVT, arterial occlusion, herpes zoster, electrolyte abnormality, tumor.... This is not meant to be in all inclusive list EKG interpreted by me (3pts min.). @ -As above X-rays interpreted by me (1pt min.). @ -None done CT interpreted by me (1pt min.). @ -None done U/S interpreted by me (1pt. min.). @ -Ultrasound negative for DVT What testing was considered but not performed or refused? (CT, X-rays, U/S, labs)? Why? @ -None What meds were considered but not given or refused? Why? @ -None Did you discuss the management of the patient with other professionals (professionals i.e. , PA, PUBLIC INFORMATION COORDINATOR, lab, RT, psych nurse, social organization professor, federal law clerk, teacher, certification officer, medical case manager)? Give summary @ -No Was smoking cessation discussed for >3mins.? @ -No Was critical care preformed (if so, how long)? @ -No Were there social determinants of health that impacted care today? How? (Homelessness, low income, unemployed, alcoholism, drug addiction, transportation, low edu. Level, literacy, decrease access to med. care, shelter, rehab)? @ -No Was there de-escalation of care discussed even if they declined (Discuss DNR or withdrawal of care, Hospice)? DNR status @ -No What co-morbidities impacted this encounter? (DM, HTN, Smoking, COPD, CAD, Cancer, CVA, ARF, Chemo, Hep., AIDS, mental health diagnosis, sleep apnea, morbid obesity)? @ -None Was patient admitted / discharged? Hospital course, mention meds given and rou te, prescriptions, significant lab abnormalities, going to OR and other pertinent info. @ -43-year-old male presenting with chief complaint of right lower leg cramping. Has been ongoing for about 2 week. On exam he is neurovascularly intact with no obvious deformities. He has had no injury or trauma. Ultrasound is negative for DVT. Patient is educated on supportive management and instructed to follow-up with his PCP. He has followed with [facility] in [facility] past, also instructed to follow-up with Dr. Dee who he has seen in the past if pain persists. Follow-up with PCP. Report back to ER with any new or worsening symptoms. Discussed return parameters and answered all questions. Patient conveyed verbal understanding and agreed to the plan. I discussed this case in detail with my attending Dr. Husain Undiagnosed new problem with uncertain prognosis? @ -No Drug Therapy requiring intensive monitoring for toxicity (Heparin, Nitro, Insulin, Cardizem)? @ -No Were any procedures done? @ -No Diagnosis/symptom? @ -Leg cramping Acute, or Chronic, or Acute on Chronic? @ -Acute Uncomplicated (without systemic symptoms) or Complicated (systemic symptoms)? @ -Uncomplicated Side effects of treatment? @ -No Exacerbation, Progression, or Severe Exacerbation? @ -No Poses a threat to life or bodily function? How? (Chest pain, [place], [place], pneumonia, PE, COPD, DKA, ARF, appy, cholecystitis, CVA, Diverticulitis, Homicidal, Suicidal, threat to staff... and all critical care pts) @ -No Disposition Clinical Impression: Leg cramping Disposition: HOME SELF-CARE Condition: Good Instructions (If sedation given, give patient instructions): Leg Cramps (ED) Additional Instructions: Follow-up with PCP. Report back to ER with any new or worsening symptoms. Take medication as prescribed, do not take cyclobenzaprine before driving or operating heavy machinery as it may cause drowsiness Is patient prescribed a controlled substance at d/c from ED?: No Referrals: Aye Law MD [Primary Care Provider] - 1-2 days Time of Disposition: 19:54
--- NOTE | 2023-08-31 19:39 | US ---
EXAMINATION TYPE: US venous doppler duplex LE RT DATE OF EXAM: 08/31/2023 7:31 PM COMPARISON: NONE CLINICAL INDICATION: Male, 43 years old with history of leg cramping; No redness or swelling. Not on blood thinners. SIDE PERFORMED: Right TECHNIQUE: The lower extremity deep venous system is examined utilizing real time linear array sonog luis with graded compression, doppler sonography and color-flow sonography. VESSELS IMAGED: Common Femoral Vein Deep Femoral Vein Greater Saphenous Vein * Femoral Vein Popliteal Vein Small Saphenous Vein * Proximal Calf Veins (* superficial vessels) Right Leg: Negative for DVT IMPRESSION: 1. Right lower extremity ultrasound negative for deep venous thrombosis.
[2023-08-31] MEDS ORDERED: CYCLOBENZAPRINE 10MG STARTER 3 TAB BTL PO STA (19:55)
[2023-08-31 20:23] VITALS: BP 141/101; PULSE 61
== END 2023-08-31 20:03 | disposition home or self-care (01) ==
LOC: EC 18:06
DX: R25.2 Cramp and spasm (principal); E11.9 Type 2 diabetes mellitus without complications; I10 Essential (primary) hypertension; J45.909 Unspecified asthma, uncomplicated; Z79.899 Other long term (current) drug therapy; Z91.041 Radiographic dye allergy status; Z88.8 Allergy status to other drugs, medicaments and biological substances
CPT/HCPCS: 99283

== ENCOUNTER → 2024-01-05 | Outpatient (CLI) | payer OTHER ==
[2024-01-05 13:02] LABS: Basophils # (A) 0.06 X 10*3/uL (0.00-0.10); Basophils % (A) 0.8 %; Eosinophils # (A) 0.32 X 10*3/uL (0.04-0.35); HCT 46.1 % (39.6-50.0); Lymphocytes # (A) 2.14 X 10*3/uL (0.90-5.00); Lymphocytes % (A) 26.8 %; MCH 30.4 pg (27.0-32.0); MCHC 32.5 g/dL (32.0-37.0); MCV 93.3 FL (80.0-97.0); Mean Platelet Volume 9.5 FL (9.5-12.2); Monocytes # (A) 0.69 X 10*3/uL (0.20-1.00); Monocytes % (A) 8.6 %; NRBC Per 100 WBC 0 X 10*3/uL (0.00-0.01); Neutrophils % (A) 58.9 %; Platelet Count 321 X 10*3/uL (140-440); RBC 4.94 X 10*6/uL (4.40-5.60); RDW 11.7 % (11.5-14.5); WBC 7.98 X 10*3/uL (4.50-10.00)
[2024-01-05 13:10] LABS: Microalbumin Creatinine Ratio <15 mg/g Cr (0-30); Urine Creatinine 78.5 mg/dL (39.0-259.0)
[2024-01-05 13:18] LABS: Chol/HDL Ratio 5.81 Ratio; LDL Cholesterol,Calculated 81.9 mg/dL (0.0-131.0)
[2024-01-05 15:19] LABS: ALT 47 U/L (10-49); AST 29 U/L (14-35); Albumin 4.6 g/dL (3.8-4.9); Albumin/Globulin Ratio 2.19 Ratio (1.60-3.17); Alkaline Phosphatase 89 U/L (41-126); BUN/Creat Ratio 13.33 Ratio (12.00-20.00); Calcium 9.6 mg/dL (8.7-10.3); Carbon Dioxide 27.5 mmol/L (21.6-31.8); Chloride 103 mmol/L (96-109); Globulin 2.1 g/dL (1.6-3.3); Glucose 114 mg/dL (70-110); Potassium 4.8 mmol/L (3.5-5.5); Sodium 141 mmol/L (135-145); Total Bilirubin 0.4 mg/dL (0.3-1.2); Total Protein 6.7 g/dL (6.2-8.2)
== END | disposition home or self-care (01) ==
LOC: LABWHC1 08:19
PROVIDERS: ATTEND Family Medicine
DX: I12.9 Hypertensive chronic kidney disease with stage 1 through stage 4 chronic kidney disease, or unspecified chronic kidney disease (principal); E11.22 Type 2 diabetes mellitus with diabetic chronic kidney disease; E11.65 Type 2 diabetes mellitus with hyperglycemia; N18.9 Chronic kidney disease, unspecified; E78.2 Mixed hyperlipidemia
CPT/HCPCS: 36415; 80053; 80061; 82043; 82570; 83036; 84443; 85025